=== PATIENT | male | born 1935 | race Caucasian/White ===

== ENCOUNTER 2017-07-30 10:41 | Inpatient (IN) ==
--- NOTE | 2017-07-30 11:20 | ERNOTE ---
Medical Problem HPI - Narrative Date of Service: 07/30/17 - General Chief Complaint: Fever Time Seen by Provider: 07/30/17 11:02 Source: patient Exam Limitations: no limitations - Immun/Allergies/Home Medications Immunizations: IMMUNIZATION HX Immunizations Up to Date Yes History of Influenza Vaccine Yes Hx Pneumococcal Vaccination Yes Allergies/Adverse Reactions: Allergies No Known Drug Allergies Allergy (Verified 07/30/17 11:28) Home Medications: HOME MEDICATIONS Atorvastatin Calcium [Lipitor] 60 mg PO HS 05/17/12 [Last Taken 04/22/13] Benazepril HCl [Lotensin] 20 mg PO BID 05/17/12 [Last Taken 04/23/13] Escitalopram Oxalate [Lexapro] 10 mg PO HS 05/17/12 [Last Taken 04/22/13] Furosemide [Lasix] 140 mg PO DAILY 05/17/12 [Last Taken 04/23/13] Insulin Glargine,Hum.rec.anlog [Lantus] 85 unit SQ QAM 05/17/12 [Last Taken ] Omeprazole [Prilosec] 20 mg PO BID 05/17/12 [Last Taken 04/23/13] Potassium Chloride [Klor-Con 10] 10 meq PO DAILY 05/17/12 [Last Taken 04/22/13] Gabapentin 600 mg PO TID 04/23/13 [Last Taken 04/22/13] glipiZIDE [Glucotrol] 5 mg PO BID 04/24/13 [Last Taken Unknown] rOPINIRole HCL [Ropinirole HCl] 3 mg PO HS 04/24/13 [Last Taken Unknown] Metoprolol Tartrate [Lopressor] 75 mg PO BID 06/08/13 [Last Taken Unknown] Acetaminophen [Arthritis Pain Relief] 1,300 mg PO Q8H PRN 08/24/13 [Last Taken Unknown] Insulin Pump/Infus. Set/Meter [Accu-Chek Combo System] 1 each MC DAILY 08/24/13 [Last Taken Unknown] Multivitamins [Multivitamin Keith] 1 cap PO DAILY 08/24/13 [Last Taken Unknown] Apixaban [Eliquis] 5 mg PO BID 07/30/17 [Last Taken Unknown] Pioglitazone HCl [Actos] 45 mg PO DAILY 07/30/17 [Last Taken Unknown] - History of Present History Narrative: Pt. comes in from home with by ambulance with c/o increased weakness, SOB, and chills with fever, for 24 hours. Pt. states that he has a hx of prostate cnacer and CHF, with fluid retention and has been urinating more frequently but denies any recent change in urination like dysuria, or pyuria. Timing: getting worse Severity: mild Modifying Factors - (Improves): Present: other - denies Modifying Factors - (Worsens): Present: other - activity and laying flat Review of Systems - Review of Systems Constitutional: Present: fever, chills, weakness, fatigue, malaise EYE: Present: no symptoms reported ENT: Present: no symptoms reported. Absent: nose congestion, nasal drainage, sore throat Respiratory: Present: shortness of breath, orthopnea. Absent: cough, wheezing Cardiology: Present: edema. Absent: chest pain, palpitations Gastrointestinal/Abdominal: Present: nausea, vomiting. Absent: diarrhea, abdominal pain Genitourinary: Present: no symptoms reported. Absent: frequency, decreased urinary output Musculoskeletal: Present: no symptoms reported. Absent: back pain, neck pain, joint pain Skin: Present: no symptoms reported. Absent: rash, change in color Neurological: Present: weakness - generalized. Absent: headache, dizziness/ light-headedness, numbness, tingling Endocrine: Present: no symptoms reported Hematologic/Lymphatic: Present: no symptoms reported All Other Systems: All systems neg except as marked - Patient's Past Medical History Patient History - Medical: Diabetes Type 2, Obesity Patient History - Cardiac/Respiratory: Cardiac Arrest, CHF, CPAP/BiPAP Home Use , Sleep Apnea Patient History - Cancer: Prostate Patient History - Surgical Procedures: Cardiac stent, Total Knee Replacement Patient History - Other: None - Social History Living Situations: home Abuse History: No History of abuse Psych History: No pertinent hx Smoking Status: Former smoker Have you smoked in the past 12 months: No Do you dip or chew tobacco: No Alcohol Use: occasionally Drug Use: none - Immunizations Immunizations Up to Date: Yes Hx Pneumococcal Vaccination: Yes History of Influenza Vaccine: Yes Physical Exam - Physical Exam General Appearance: Present: wd/wn, alert, no apparent distress Head Exam: Present: normal inspection, no evidence of injury, no tenderness w palpation Eye Exam: Normal inspection: bilateral Ears, Nose, Throat: Present: normal ENT inspection, normal pharynx Neck: Present: normal inspection, nontender, supple, full range of motion. Absent: lymphadenopathy (R), lymphadenopathy (L) Respiratory: Present: no respiratory distress, no accessory muscle use, chest nontender, decreased breath sounds - B bases, crackles - course BUL Cardiovascular/Chest: Present: regular rate, rhythm, no murmur, normal peripheral pulses Gastrointestinal/Abdominal: Present: normal bowel sounds, no organomegaly, tenderness - BUQ, distended. Absent: rebound, McBurney sign, Burrell sign Back Exam: Present: normal inspection Extremity Exam: Present: extremity edema - BLE +4 gross edema and BUE +2. pt. also with sacral edema., other - ketosis BLE and hemosiderin staining, no cellulytic changes or erythema Neurological Exam: Present: alert, oriented, normal mood/affect, no motor/ sensory deficits Skin Exam: Present: normal color, warm/dry, other - see above. Pt. with multiple avulsions on his stomach from picking sores. All at different stages of healing one on his LLQ 1cm in diameter with purulent dry slough present.. Absent: pallor, skin rash ED Progress - Date and Time Seen: Date and Time: 1300 Unable to find source of infection, discussed with pt. and he states that he wants me to check buttocks because they have been burning and pt. found to have 2cm open necrotic wet wound with purulent drainage and odor with surrounding cellulitis. 07/30/17 13:[address] Mcintyre and she accepts pt. for transfer and recommends Zosyn 07/30/17 13:47 Pt. ideal body weight 172 kg so will order rest of sepsis bolus at 126/hr for [place] body weight - Results and Orders Patient's Lab Results:: I have reviewed the patient's lab results. Results and Orders: Laboratory Results - last 24 hr 07/30/17 07/30/17 07/30/17 11:10 11:10 11:10 WBC 22.8 H RBC 3.39 L Hgb 10.6 L Hct 32.2 L MCV 95.0 MCH 31.3 H MCHC 32.9 RDW 13.7 Plt Count 158 MPV 9.7 H Neutrophils % (Manual) 86 H Band Neuts % (Manual) 8 H Lymphocytes % (Manual) 4 L Monocytes % (Manual) 2 Neutrophils # (Manual) 19.6 H Lymphocytes # (Manual) 0.9 L Monocytes # (Manual) 0.5 Platelet Estimate Normal RBC Morphology Normal ESR 45 H Sodium 137 Plasma Sodium 139 Potassium 4.5 Chloride 104 Carbon Dioxide 28.2 Anion Gap 9.3 BUN 23 D Creatinine 1.70 H Est GFR (Non-Af Amer) 41 L BUN/Creatinine Ratio 13.5 Random Glucose 202 H Lactic Acid, Venous Calcium 8.6 Calcium Adj for Albumin 9.2 Total Bilirubin 1.0 AST 33 ALT 29 Alkaline Phosphatase 117 C-Reactive Prot, Quant 2.2 H B-Natriuretic Peptide 2552 H Total Protein 6.2 Albumin 2.8 L Urine Color Urine Appearance Urine pH Ur Specific [place] Urine Protein Urine Glucose (UA) Urine Ketones Urine Blood Urine Nitrate Urine Bilirubin Urine Urobilinogen Ur Leukocyte Esterase Urine RBC Urine WBC Ur Epithelial Cells Amorphous Sediment Urine Bacteria Urine Culture Comments 07/30/17 07/30/17 11:10 11:48 WBC RBC Hgb Hct MCV MCH MCHC RDW Plt Count MPV Neutrophils % (Manual) Band Neuts % (Manual) Lymphocytes % (Manual) Monocytes % (Manual) Neutrophils # (Manual) Lymphocytes # (Manual) Monocytes # (Manual) Platelet Estimate RBC Morphology ESR Sodium Plasma Sodium Potassium Chloride Carbon Dioxide Anion Gap BUN Creatinine Est GFR (Non-Af Amer) BUN/Creatinine Ratio Random Glucose Lactic Acid, Venous 2.8 H* Calcium Calcium Adj for Albumin Total Bilirubin AST ALT Alkaline Phosphatase C-Reactive Prot, Quant B-Natriuretic Peptide Total Protein Albumin Urine Color Yellow Urine Appearance Slightly cloudy Urine pH 5.5 Ur Specific [place] 1.020 Urine Protein Negative Urine Glucose (UA) Negative Urine Ketones Negative Urine Blood 25 H Urine Nitrate Negative Urine Bilirubin Negative Urine Urobilinogen Normal Ur Leukocyte Esterase Negative Urine RBC None seen Urine WBC 0-5 Ur Epithelial Cells 0-5 Amorphous Sediment Few - 1+ Urine Bacteria None seen Urine Culture Comments Culture to follow - Vital Signs Patient's Vital Signs:: I have reviewed the patient's vital signs. Vital Signs: Vital Signs 07/30/17 10:46 Temperature 37.4 C Pulse Rate 94 Respiratory 29 H Rate Blood Pressure 170/116 O2 Sat by Pulse 96 Oximetry - EKG EKG: atrial fibrillation, RBBB - incomplete, other - RVR EKG read: Reviewed by me EKG Comments: interp by Dr reno - X-Ray X-Ray #1 X-Ray: chest Interpretation: Reviewed by me X-ray Comments: no pulmonary congestion or consolidation but with cardiomegaly - Progress/Reassessment Chief Complaint: Fever Departure Clinical Impression: Sepsis Qualifiers: Sepsis type: sepsis due to unspecified organism Qualified Code(s): A41.9 - Sepsis, unspecified organism Pressure ulcer Qualifiers: Pressure ulcer location: sacral region Pressure ulcer stage: unstageable Qualified Code(s): L89.150 - Pressure ulcer of sacral region, unstageable CHF (congestive heart failure) Qualifiers: Heart failure type: unspecified Heart failure chronicity: acute on chronic Qualified Code(s): I50.9 - Heart failure, unspecified Cellulitis Qualifiers: Site of cellulitis: buttock Qualified Code(s): L03.317 - Cellulitis of buttock - Departure Disposition: Still a patient Condition: Serious Referrals: Caryn Maza MD [Primary Care Provider] -
[2017-07-30] MEDS ORDERED: NORMAL SALINE 250 ML IV ONE (11:22)
[2017-07-30 11:28] LABS: Hematocrit 32.2 % (42.0-52.0); Hemoglobin 10.6 gm/dL (13.5-18.0); Mean Corpuscular Hemoglobin 31.3 pg (27-31); Mean Corpuscular Hgb Conc 32.9 g/dl (32-36); Mean Platelet Volume 9.7 fl (6.0-9.5); Platelet Count 158 K/mm3 (150-450); Red Blood Count 3.39 M/mm3 (4.7-6.0); Red Cell Distribution Width 13.7 % (11.5-14.0); White Blood Count 22.8 K/mm3 (4.0-10.5)
[2017-07-30 11:31] LABS: Total Cells Counted 100
[2017-07-30 11:47] LABS: Albumin * 2.8 gm/dl (3.4-5.0); Anion Gap 9.3 mmol/L (6.8-13.8); BUN/Creatinine Ratio 13.5 (9.0-21.6); CRP 2.2 mg/dL (0.0-0.9); Ca. Corrected For Albumin 9.2 mg/dL (8.4-10.2); Calcium * 8.6 mg/dL (7.9-10.9); Carbon Dioxide 28.2 mmol/L (24-32.6); Potassium 4.5 mmol/L (3.4-4.6); Total Protein 6.2 gm/dL (6.2-8.2)
[2017-07-30 12:00] LABS: Band 8 % (0-2.0); Lymphocyte 4 % (20-51); Monocyte 2 % (0-9); Neutrophil 86 % (42-75); Neutrophil # 19.6 K/mm3 (1.3-6.0); Platelet Estimate Normal (NORMAL); RBC Morphology Normal (NORMAL)
[2017-07-30 12:13] LABS: Urine Appearance Slightly Cloudy (CLEAR); Urine Bilirubin Negative (NEGATIVE); Urine Color Yellow
[2017-07-30 12:14] LABS: Urine Blood 25 /ul (NEGATIVE); Urine Ketone Negative (NEGATIVE); Urine Nitrite Negative (NEGATIVE); Urine Protein Negative (NEGATIVE); Urine Urobilinogen Normal (NORMAL); Urine pH 5.5 pH (5.0-7.0)
[2017-07-30 12:33] LABS: Urine Bacteria None Seen; Urine RBC None Seen /hpf (0-5); Urine WBC 0-5 /hpf (0-5)
[2017-07-30 12:34] LABS: Urine Amorphous Sediment Few - 1+ (NONE-FEW)
[2017-07-30] MEDS: NORMAL SALINE 1,000 ML IV SCH ×2 (13:57→23:12)
[2017-07-30] MEDS: PIPERACILLIN SODIUM/TAZOBACTAM 3.375 GM in DEXTROSE 5 % IN WATER 100 ML IV SCH ×4 (15:29→22:28)
--- NOTE | 2017-07-30 19:34 | HP ---
Chief Complaint - Chief Complaint Date of Service: 07/30/17 Time of Service: 19:34 Chief Complaint: " Chills, weakness". Source of HPI- Pt; reliable, ERP report. History of Present Illness: Mr. Way is a 82-yr-old WM pt of Dr. Caryn Simpson with a PMH of: Anxiety , A-fib, CAD, Cholelithiasis, Depression, DM II, GERD, HTN, HLD, Morbid Obesity , Osteothathritis, DE, Prostate Ca, Restless Leg Syndrome and TED. Pt states that last night, he developed chills when he went to bed. This morning he woke up feeling like he was "burning." His tried to assist him to sit upright on the bed and he kept falling back. then called the EMS and he was brought to the [facility] ER. He states that he has been coughing a lot lately and that his throat feels sore from the cough. He has not been around ill contacts. He denies N/V, Diarrhea & Abdominal pain. He reports extreme SOB with any activity. At the ED, No infection on UA. The CXR did not show evidence of Pneumonia or pleural effusion, but Cardiomegaly was noted. Abdominal X-ray did not show any signs of Obstruction. He had tachycardia in the 110s ,tachypneic at 24-26 and hypotensive with BP of 80s/40s. His notable abnormal labs were: Laboratory Tests 07/30/17 07/30/17 07/30/17 11:10 11:10 11:10 WBC 22.8 H Neutrophils % (Manual) 86 H Band Neuts % (Manual) 8 H ESR 45 H Lactic acid 2.8 C-Reactive Prot, Quant 2.2 H B-Natriuretic Peptide 2552 H Pt will need to be admitted inpatient for Sepsis secondary to unknown source of infection. - Patient's Past Medical History Patient History - Medical: Arthritis, Diabetes Type 2, Depression, GERD, Obesity , Osteoarthritis Patient History - Cardiac/Respiratory: Asthma, Cardiac Arrest, Coronary Heart Disease, CHF, Hypertension, Hyperlipidemia, Myocardial Infarction, CPAP/BiPAP Home Use, Sleep Apnea Patient History - Cancer: Prostate Patient History - Surgical Procedures: Colonoscopy, Cardiac stent, Total Knee Replacement Patient History - Other: None - Family History Father Family History - Medical: Family History - Cancer: Prostate Mother Family History - Medical: - Social History Living Situations: home Abuse History: No History of abuse Psych History: Hx of Anxiety, Hx of Depression Smoking Status: Former smoker Have you smoked in the past 12 months: No Do you dip or chew tobacco: No Alcohol Use: occasionally Drug Use: none - Immunizations Immunizations Up to Date: Yes Hx Pneumococcal Vaccination: Yes History of Influenza Vaccine: Yes Review Of Systems (GEN) - Review of Systems Generalized/Overall Review: Present: Weakness, Chills, Fever, Malaise EENTM: Absent: Eye Pain, Blurred Vision, Double Vision Respiratory: Present: Cough, Shortness of Breath - with exertion Cardiac: Present: Edema. Absent: Chest Pain, Palpitations, Syncope Abdominal: Absent: Nausea, Vomiting, Hematemesis, Abdominal Pain, Constipation Genitourinary: Absent: Burning, Itching, Urgency Musculoskeletal: Absent: Joint Pain, Back Pain, Joint Swelling Neurological: Absent: Headache, Anxiety, Depressed, Emotional Problems Skin: Absent: Dryness, Lesions Endocrine: Absent: Intolerance to Cold Misc: All systems neg except as marked Allergies/Adverse Reactions: Allergies Allergy/AdvReac Type Severity Reaction Status Date / Time No Known Drug Allergies Allergy Verified 07/30/17 16:32 Home Medications: HOME MEDICATIONS Atorvastatin Calcium [Lipitor] 60 mg PO HS 05/17/12 [Last Taken 04/22/13] Benazepril HCl [Lotensin] 20 mg PO BID 05/17/12 [Last Taken 04/23/13] Escitalopram Oxalate [Lexapro] 10 mg PO HS 05/17/12 [Last Taken 04/22/13] Furosemide [Lasix] 140 mg PO DAILY 05/17/12 [Last Taken 04/23/13] Insulin Glargine,Hum.rec.anlog [Lantus] 85 unit SQ QAM 05/17/12 [Last Taken ] Omeprazole [Prilosec] 20 mg PO BID 05/17/12 [Last Taken 04/23/13] Potassium Chloride [Klor-Con 10] 20 meq PO DAILY 05/17/12 [Last Taken 04/22/13] Gabapentin 600 mg PO TID 04/23/13 [Last Taken 04/22/13] glipiZIDE [Glucotrol] 5 mg PO BID 04/24/13 [Last Taken Unknown] rOPINIRole HCL [Ropinirole HCl] 3 mg PO HS 04/24/13 [Last Taken Unknown] Metoprolol Tartrate [Lopressor] 75 mg PO BID 06/08/13 [Last Taken Unknown] Acetaminophen [Arthritis Pain Relief] 1,300 mg PO Q8H PRN 08/24/13 [Last Taken Unknown] Insulin Pump/Infus. Set/Meter [Accu-Chek Combo System] 1 each MC DAILY 08/24/13 [Last Taken Unknown] Multivitamins [Multivitamin Keith] 1 cap PO DAILY 08/24/13 [Last Taken Unknown] Apixaban [Eliquis] 5 mg PO BID 07/30/17 [Last Taken Unknown] Pioglitazone HCl [Actos] 45 mg PO DAILY 07/30/17 [Last Taken Unknown] Exam - Exam Vital Signs: Vital Signs - Last Taken Temp 36.8 C 07/30/17 19:12 Pulse 95 07/30/17 19:12 Resp 20 07/30/17 19:12 BP 108/41 07/30/17 19:12 Pulse Ox 96 07/30/17 19:12 Constitutional: Present: Alert, Oriented x3, Cooperative, No distress, Morbidly obese ENT Exam: Present: normal ENT inspection, dry mucous membranes Eye Exam: bilateral eye: normal inspection, PERRL Neck: Present: non-tender, full range of motion Back Exam: Present: normal inspection, no CVA tenderness Breasts: Present: Exam deferred Respiratory: Present: decreased breath sounds, No rales, No wheezing Cardiovascular/Chest: Present: normal peripheral pulses, regular rate, rhythm, no chest tenderness Abdomen: Present: Normal bowel sounds, soft, nontender /Rectal: Present: Exam deferred Extremity: Present: lower extremity edema, other Skin Exam: Present: other - Dry, Flaky BLE, LT buttock skin fold-Skin opening/ slit of 2cm, no drainage, no undermining. Lymphatic: Present: no adenopathy Neurologic: Present: alert, normal mood/affect, oriented x 3 Appearance: Present: appropriate appearance, appropriate insight Eye contact: Present: cooperative, good eye contact, normal speech Thoughts: Present: normal thought pattern, no apparent hallucination Diagnostic Studies: Abnormal Lab Results 07/30/17 Range/Units 14:05 Lactic Acid, Venous 2.6 H* (0.4-1.9) mmol/L Laboratory Results WBC 22.8 K/mm3 (4.0-10.5) H 07/30/17 11:10 RBC 3.39 M/mm3 (4.7-6.0) L 07/30/17 11:10 Hgb 10.6 gm/dL (13.5-18.0) L 07/30/17 11:10 Hct 32.2 % (42.0-52.0) L 07/30/17 11:10 MCV 95.0 fl (78-100) 07/30/17 11:10 MCH 31.3 pg (27-31) H 07/30/17 11:10 MCHC 32.9 g/dl (32-36) 07/30/17 11:10 RDW 13.7 % (11.5-14.0) 07/30/17 11:10 Plt Count 158 K/mm3 (150-450) 07/30/17 11:10 MPV 9.7 fl (6.0-9.5) H 07/30/17 11:10 Neutrophils % (Manual) 86 % (42-75) H 07/30/17 11:10 Band Neuts % (Manual) 8 % (0-2.0) H 07/30/17 11:10 Lymphocytes % (Manual) 4 % (20-51) L 07/30/17 11:10 Monocytes % (Manual) 2 % (0-9) 07/30/17 11:10 Neutrophils # (Manual) 19.6 K/mm3 (1.3-6.0) H 07/30/17 11:10 Lymphocytes # (Manual) 0.9 k/mm3 (1.5-3.5) L 07/30/17 11:10 Monocytes # (Manual) 0.5 k/mm3 (0.0-1.0) 07/30/17 11:10 Platelet Estimate Normal (NORMAL) 07/30/17 11:10 RBC Morphology Normal (NORMAL) 07/30/17 11:10 ESR 45 mm/hr (0-10) H 07/30/17 11:10 Sodium 137 mmol/L (132-142) 07/30/17 11:10 Plasma Sodium 139 mmol/L (130-142) 07/30/17 11:10 Potassium 4.5 mmol/L (3.4-4.6) 07/30/17 11:10 Chloride 104 mmol/L (97-106) 07/30/17 11:10 Carbon Dioxide 28.2 mmol/L (24-32.6) 07/30/17 11:10 Anion Gap 9.3 mmol/L (6.8-13.8) 07/30/17 11:10 BUN 23 mg/dL (6-23) D 07/30/17 11:10 Creatinine 1.70 mg/dL (0.4-1.4) H 07/30/17 11:10 Est GFR (Non-Af Amer) 41 mL/min (60-130) L 07/30/17 11:10 BUN/Creatinine Ratio 13.5 (9.0-21.6) 07/30/17 11:10 Random Glucose 202 mg/dL (70-110) H 07/30/17 11:10 Lactic Acid, Venous 2.6 mmol/L (0.4-1.9) H* 07/30/17 14:05 Calcium 8.6 mg/dL (7.9-10.9) 07/30/17 11:10 Calcium Adj for Albumin 9.2 mg/dL (8.4-10.2) 07/30/17 11:10 Total Bilirubin 1.0 mg/dL (0.0-1.1) 07/30/17 11:10 AST 33 U/L (0-48) 07/30/17 11:10 ALT 29 U/L (19-67) 07/30/17 11:10 Alkaline Phosphatase 117 U/L (50-170) 07/30/17 11:10 C-Reactive Prot, Quant 2.2 mg/dL (0.0-0.9) H 07/30/17 11:10 B-Natriuretic Peptide 2552 pg/mL (5-650) H 07/30/17 11:10 Total Protein 6.2 gm/dL (6.2-8.2) 07/30/17 11:10 Albumin 2.8 gm/dl (3.4-5.0) L 07/30/17 11:10 Urine Color Yellow 07/30/17 11:48 Urine Appearance Slightly cloudy (CLEAR) 07/30/17 11:48 Urine pH 5.5 pH (5.0-7.0) 07/30/17 11:48 Ur Specific [place] 1.020 SP.GR. (1.005-1.030) 07/30/17 11:48 Urine Protein Negative mg/dL (NEGATIVE) 07/30/17 11:48 Urine Glucose (UA) Negative mg/dL (NEGATIVE) 07/30/17 11:48 Urine Ketones Negative mg/dL (NEGATIVE) 07/30/17 11:48 Urine Blood 25 /ul (NEGATIVE) H 07/30/17 11:48 Urine Nitrate Negative (NEGATIVE) 07/30/17 11:48 Urine Bilirubin Negative mg/dl (NEGATIVE) 07/30/17 11:48 Urine Urobilinogen Normal EU/dl (NORMAL) 07/30/17 11:48 Ur Leukocyte Esterase Negative /ul (NEGATIVE) 07/30/17 11:48 Urine RBC None seen /hpf (0-5) 07/30/17 11:48 Urine WBC 0-5 /hpf (0-5) 07/30/17 11:48 Ur Epithelial Cells 0-5 /hpf (0-5) 07/30/17 11:48 Amorphous Sediment Few - 1+ (NONE-FEW) 07/30/17 11:48 Urine Bacteria None seen (NONE) 07/30/17 11:48 Urine Culture Comments Culture to follow 07/30/17 11:48 Influenza Type A Ag Negative (NEGATIVE) 07/30/17 13:50 Influenza Type B Ag Negative (NEGATIVE) 07/30/17 13:50 Assessment/Plan - Assessment/Plan (1) Sepsis Assessment: Source of infection; unknown. UA -ve, No acute findings on the CXR and Abdominal X-ray. Will be treated according to sepsis with IVF hydration, trend lactic acid, initiate Antibiotics. Started on Zosyn and will continue until blood culture results. Monitor CBC in am. Problem: Acute (2) A-fib Assessment: Stable- On Eliquis, Metoprolol. Place on telemetry monitoring. Problem: Chronic (3) Diabetes Assessment: Consistent Carb diet, On Actos, Glipizide & Lantus. Problem: Chronic Qualifiers: Diabetes mellitus type: type 2 (4) Lymphedema Problem: Chronic (5) HTN (hypertension) Assessment: Stable- On enalapril. Problem: Chronic Qualifiers: Hypertension type: essential hypertension Qualified Code(s): I10 - Essential (primary) hypertension (6) CHF (congestive heart failure) Assessment: Continue Lasix and KCL. Problem: Chronic Qualifiers: Heart failure type: diastolic Heart failure chronicity: acute on chronic Qualified Code(s): I50.33 - Acute on chronic diastolic (congestive) heart failure (7) Morbid obesity Assessment: With BMI of 60.2kg/m Problem: Chronic (8) HLD (hyperlipidemia) Problem: Chronic (9) Obstructive sleep apnea Assessment: Stable- Continue Home CPAP. Problem: Chronic (10) CKD (chronic kidney disease) Assessment: Laboratory Tests 09/09/16 01/03/17 03/14/17 09:50 13:44 12:57 Creatinine 1.62 H 1.48 H 1.68 H Est GFR (Non-Af Amer) 44 L D 49 L 42 L 07/30/17 11:10 Creatinine 1.70 H Est GFR (Non-Af Amer) 41 L Problem: Chronic Qualifiers: Chronic kidney disease stage: stage 3 (moderate) Qualified Code(s): N18.3 - Chronic kidney disease, stage 3 (moderate)
[2017-07-30] MEDS ORDERED: METOPROLOL TARTRATE 50 MG TABLET PO SCH (21:00)
[2017-07-30] MEDS ORDERED: ENALAPRIL MALEATE 20 MG TABLET PO SCH (21:00)
[2017-07-30] MEDS: glipiZIDE 5 MG TABLET PO SCH (21:16)
[2017-07-30] MEDS: GABAPENTIN 300 MG CAPSULE PO SCH (21:16)
[2017-07-30] MEDS: rOPINIRole HCL 1 MG TABLET PO SCH (21:17)
[2017-07-30] MEDS: ESCITALOPRAM OXALATE 10 MG TAB PO SCH (21:18)
[2017-07-30] MEDS: APIXABAN 5 MG TABLET PO SCH (21:18)
[2017-07-30] MEDS: SACCHAROMYCES BOULARDII 250 MG CAPSULE PO SCH (21:18)
[2017-07-30] MEDS: ROSUVASTATIN CALCIUM 10 MG TABLET PO SCH (21:22)
[2017-07-31] MEDS: NORMAL SALINE 500 ML IV PRN ×2 (02:17→03:20)
[2017-07-31] MEDS ORDERED: NORMAL SALINE 500 ML IV PRN (03:21)
--- NOTE | 2017-07-31 04:57 | PN ---
Subjective - Date and Time Seen Date: 07/31/17 Time: 04:56 Subjective Narrative: Pt examined this am. Has been hypotensive since about 0200 with SBP < 100.- Will hold lasix, metoprolol, and Enalapril. Received 1.5 L of IVF bolus for this. Has had urine output of 300ml only. Denies SOB unless with activity. No other acute events overnight. Objective - Vitals Vitals: Last Vital Signs Temp 37 C 07/31/17 02:12 Pulse 99 07/31/17 04:20 Resp 20 07/31/17 02:42 BP 91/50 07/31/17 04:20 Pulse Ox 95 07/31/17 02:42 - Abnormal Lab Findings Abnormal Lab Findings: Abnormal Lab Results 07/30/17 Range/Units 14:05 Lactic Acid, Venous 2.6 H* (0.4-1.9) mmol/L - Exam Constitutional: Present: Alert, Oriented x3, Cooperative, No distress, Morbidly obese ENT Exam: Present: normal ENT inspection Neck: Present: non-tender, full range of motion, supple Respiratory: Present: lungs clear, No rales, No wheezing Cardiovascular/Chest: Present: normal peripheral pulses, regular rate, rhythm Abdomen: Present: Normal bowel sounds, obese /Rectal: Present: Exam deferred Extremity: Present: lower extremity edema Skin Exam: Present: other - Flaky BLE Lymphatic: Present: no adenopathy Neurologic: Present: alert, normal mood/affect, oriented x 3 Appearance: Present: appropriate appearance, appropriate insight Eye contact: Present: cooperative, good eye contact, normal speech Thoughts: Present: normal thought pattern, no apparent hallucination Assessment/Plan - Problems/Diagnosis (1) Sepsis Problem: Acute Narrative: Source of infection; unknown. UA -ve, No acute findings on the CXR and Abdominal X-ray. Will be treated according to sepsis with IVF hydration, trend lactic acid, initiate Antibiotics. Started on Zosyn and will continue until blood culture results. Monitor CBC in am. (2) Hypotension Problem: Acute Narrative: Hold antihypensive. Given IVF bolus. (3) A-fib Problem: Chronic Narrative: Stable- On Eliquis, Metoprolol. Place on telemetry monitoring. (4) Diabetes Problem: Chronic Qualifiers: Diabetes mellitus type: type 2 Narrative: Accu checks ACHS, Consistent Carb diet, On Actos, Glipizide & Lantus. (5) Lymphedema Problem: Chronic (6) HTN (hypertension) Problem: Chronic Qualifiers: Hypertension type: essential hypertension Qualified Code(s): I10 - Essential (primary) hypertension Narrative: Stable- On enalapril. (7) CHF (congestive heart failure) Problem: Chronic Qualifiers: Heart failure type: diastolic Heart failure chronicity: acute on chronic Qualified Code(s): I50.33 - Acute on chronic diastolic (congestive) heart failure Narrative: Continue Lasix and KCL. (8) Morbid obesity Problem: Chronic (9) HLD (hyperlipidemia) Problem: Chronic (10) Obstructive sleep apnea Problem: Chronic Narrative: Stable- Continue Home CPAP. (11) CKD (chronic kidney disease) Problem: Chronic Qualifiers: Chronic kidney disease stage: stage 3 (moderate) Qualified Code(s): N18.3 - Chronic kidney disease, stage 3 (moderate)
[2017-07-31 05:10] LABS: Hematocrit 29.5 % (42.0-52.0); Hemoglobin 9.8 gm/dL (13.5-18.0); Mean Cell Volume 95.2 fl (78-100); Mean Corpuscular Hemoglobin 31.6 pg (27-31); Mean Corpuscular Hgb Conc 33.2 g/dl (32-36); Mean Platelet Volume 9.3 fl (6.0-9.5); Neutrophil % 88.5 % (42-75.0); Platelet Count 130 K/mm3 (150-450); Red Cell Distribution Width 14.1 % (11.5-14.0); White Blood Count 12.4 K/mm3 (4.0-10.5)
[2017-07-31] MEDS ORDERED: NORMAL SALINE 500 ML IV ONE (05:20)
[2017-07-31 05:23] LABS: Anion Gap 9.6 mmol/L (6.8-13.8); Calcium * 8.1 mg/dL (7.9-10.9); Carbon Dioxide 26.3 mmol/L (24-32.6); Estimated Creat Clear 33.5; Potassium 3.9 mmol/L (3.4-4.6)
[2017-07-31] MEDS: PIPERACILLIN SODIUM/TAZOBACTAM 3.375 GM in DEXTROSE 5 % IN WATER 100 ML IV SCH ×6 (06:48→22:24)
[2017-07-31] MEDS: PANTOPRAZOLE SODIUM 20 MG TABLET.DR PO SCH ×2 (06:49→17:15)
[2017-07-31] MEDS: NORMAL SALINE 1,000 ML IV PRN ×2 (06:53→17:09)
[2017-07-31] MEDS ORDERED: ACETAMINOPHEN 650 MG TABLET PO PRN (07:05)
[2017-07-31] MEDS: GABAPENTIN 300 MG CAPSULE PO SCH ×3 (08:24→17:15)
[2017-07-31] MEDS: glipiZIDE 5 MG TABLET PO SCH ×2 (08:24→17:14)
[2017-07-31] MEDS: MULTIVITAMINS 1 CAP CAPSULE PO SCH (08:24)
[2017-07-31] MEDS: POTASSIUM CHLORIDE 10 MEQ TABLET.SA PO SCH (08:24)
[2017-07-31] MEDS: SACCHAROMYCES BOULARDII 250 MG CAPSULE PO SCH ×2 (08:24→22:23)
[2017-07-31] MEDS: APIXABAN 5 MG TABLET PO SCH ×2 (08:24→22:23)
[2017-07-31] MEDS: PIOGLITAZONE HCL 15 MG TABLET PO SCH (08:24)
[2017-07-31] MEDS: INSULIN GLARGINE,HUM.REC.ANLOG 100 UNITS/ML VIAL SC SCH (08:48)
[2017-07-31] MEDS ORDERED: FUROSEMIDE 40 MG TABLET PO SCH (09:00)
[2017-07-31] MEDS ORDERED: FUROSEMIDE 20 MG TABLET PO SCH (09:00)
[2017-07-31] MEDS ORDERED: [UNRECOGNIZED DRUG - OTHER] MC SCH (09:00)
[2017-07-31] MEDS ORDERED: FUROSEMIDE 80 MG TABLET PO SCH ×2 (09:00)
[2017-07-31] MEDS ORDERED: NYSTATIN 15 APPL BTL TP PRN (11:54)
[2017-07-31] MEDS: HYDROcodone/ACETAMINOPHEN 1 EACH TABLET PO PRN ×3 (13:08→22:56)
[2017-07-31] MEDS: ROSUVASTATIN CALCIUM 10 MG TABLET PO SCH (22:23)
[2017-07-31] MEDS: ESCITALOPRAM OXALATE 10 MG TAB PO SCH (22:23)
[2017-07-31] MEDS: rOPINIRole HCL 1 MG TABLET PO SCH (22:24)
[2017-08-01] MEDS: NORMAL SALINE 1,000 ML IV PRN (02:59)
[2017-08-01 05:00] LABS: Hematocrit 31.8 % (42.0-52.0); Hemoglobin 10.3 gm/dL (13.5-18.0); Mean Cell Volume 96.1 fl (78-100); Mean Corpuscular Hemoglobin 31.1 pg (27-31); Mean Corpuscular Hgb Conc 32.4 g/dl (32-36); Mean Platelet Volume 9.7 fl (6.0-9.5); Neutrophil # 5.2 K/mm3 (1.3-6.0); Neutrophil % 72.5 % (42-75.0); Platelet Count 137 K/mm3 (150-450); Red Blood Count 3.31 M/mm3 (4.7-6.0); Red Cell Distribution Width 14.1 % (11.5-14.0); White Blood Count 7.2 K/mm3 (4.0-10.5)
[2017-08-01 05:10] LABS: Anion Gap 9.3 mmol/L (6.8-13.8); BUN/Creatinine Ratio 16.4 (9.0-21.6); Calcium * 8.5 mg/dL (7.9-10.9); Carbon Dioxide 26.9 mmol/L (24-32.6); Estimated Creat Clear 42.5; Potassium 4.2 mmol/L (3.4-4.6)
--- NOTE | 2017-08-01 05:30 | PN ---
Subjective - Date and Time Seen Date: 08/01/17 Time: 05:30 Subjective Narrative: Pt seen this am. Has not complains. Had urine output of 2000ml. BPs are better. No other acute events overnight. Objective - Vitals Vitals: Last Vital Signs Temp 36.3 C L 08/01/17 03:07 Pulse 104 H 08/01/17 03:07 Resp 22 H 08/01/17 03:07 BP 140/52 08/01/17 03:07 Pulse Ox 97 08/01/17 03:07 - Abnormal Lab Findings Abnormal Lab Findings: Abnormal Lab Results 07/31/17 08/01/17 08/01/17 Range/Units 05:05 04:55 04:55 RBC 3.31 L (4.7-6.0) M/mm3 Hgb 10.3 L (13.5-18.0) gm/dL Hct 31.8 L (42.0-52.0) % MCH 31.1 H (27-31) pg RDW 14.1 H (11.5-14.0) % Plt Count 137 L (150-450) K/mm3 MPV 9.7 H (6.0-9.5) fl Immature Gran % (Auto) 0.70 H (0.001-0.429) % Immature Gran # (Auto) 0.05 H (0.000-0.0310) K/mm3 Lymphocytes % 10.9 L (20-51) % Eosinophils % 7.6 H (0.0-3.0) % Lymphocytes # 0.79 L (1.5-3.5) k/mm3 BUN 25 H (6-23) mg/dL Creatinine 1.52 H D (0.4-1.4) mg/dL Est GFR (Non-Af Amer) 47 L D (60-130) mL/min B-Natriuretic Peptide 3911 H (5-650) pg/mL - Exam Constitutional: Present: Alert, Oriented x3, Cooperative, No distress ENT Exam: Present: normal ENT inspection, hearing grossly normal Neck: Present: non-tender, full range of motion, supple Respiratory: Present: chest non-tender, decreased breath sounds, No rales, No wheezing Cardiovascular/Chest: Present: normal peripheral pulses, regular rate, rhythm, no chest tenderness Abdomen: Present: Normal bowel sounds, soft, nontender, obese /Rectal: Present: Exam deferred Extremity: Present: lower extremity edema Skin Exam: Present: other - Flaky BLE Lymphatic: Present: no adenopathy Neurologic: Present: alert, normal mood/affect Appearance: Present: appropriate appearance, appropriate insight Eye contact: Present: cooperative, good eye contact, normal speech Thoughts: Present: normal thought pattern, no apparent hallucination Assessment/Plan - Problems/Diagnosis (1) Sepsis Problem: Acute Narrative: Source of infection; unknown. UA -ve, No acute findings on the CXR and Abdominal X-ray. Will be treated according to sepsis with IVF hydration, trend lactic acid, initiate Antibiotics. Started on Zosyn and will continue until blood culture results. Monitor CBC in am. (2) Hypotension Problem: Acute Narrative: 07/31-Hold antihypensives. Given IVF bolus. 08/01- Restart HTN Meds and Lasix (3) Discharge planning issues Problem: Acute (4) A-fib Problem: Chronic Narrative: Stable- On Eliquis, Metoprolol. Place on telemetry monitoring. (5) Diabetes Problem: Chronic Qualifiers: Diabetes mellitus type: type 2 Narrative: Accu checks ACHS, Consistent Carb diet, On Actos, Glipizide & Lantus. (6) Lymphedema Problem: Chronic (7) HTN (hypertension) Problem: Chronic Qualifiers: Hypertension type: essential hypertension Qualified Code(s): I10 - Essential (primary) hypertension (8) CHF (congestive heart failure) Problem: Chronic Qualifiers: Heart failure type: diastolic Heart failure chronicity: acute on chronic Qualified Code(s): I50.33 - Acute on chronic diastolic (congestive) heart failure Narrative: Stable- Lasix and KCL. (9) Morbid obesity Problem: Chronic (10) HLD (hyperlipidemia) Problem: Chronic (11) Obstructive sleep apnea Problem: Chronic Narrative: Stable- Continue Home CPAP. (12) CKD (chronic kidney disease) Problem: Chronic Qualifiers: Chronic kidney disease stage: stage 3 (moderate) Qualified Code(s): N18.3 - Chronic kidney disease, stage 3 (moderate)
[2017-08-01] MEDS: PIPERACILLIN SODIUM/TAZOBACTAM 3.375 GM in DEXTROSE 5 % IN WATER 100 ML IV SCH ×2 (06:29)
[2017-08-01] MEDS ORDERED: METOPROLOL TARTRATE 50 MG TABLET PO SCH (07:00)
[2017-08-01] MEDS: ENALAPRIL MALEATE 20 MG TABLET PO SCH ×3 (07:26→20:05)
[2017-08-01] MEDS: glipiZIDE 5 MG TABLET PO SCH ×2 (07:27→18:13)
[2017-08-01] MEDS: PANTOPRAZOLE SODIUM 20 MG TABLET.DR PO SCH ×2 (07:31→17:49)
[2017-08-01] MEDS: INSULIN GLARGINE,HUM.REC.ANLOG 100 UNITS/ML VIAL SC SCH (08:53)
[2017-08-01] MEDS: GABAPENTIN 300 MG CAPSULE PO SCH ×3 (09:47→17:49)
[2017-08-01] MEDS: HYDROcodone/ACETAMINOPHEN 1 EACH TABLET PO PRN ×2 (09:49→19:19)
[2017-08-01] MEDS: SACCHAROMYCES BOULARDII 250 MG CAPSULE PO SCH ×2 (09:50→20:02)
[2017-08-01] MEDS: PIOGLITAZONE HCL 15 MG TABLET PO SCH (09:50)
[2017-08-01] MEDS: LEVOFLOXACIN 500 MG TABLET PO SCH (09:50)
[2017-08-01] MEDS: MULTIVITAMINS 1 CAP CAPSULE PO SCH (09:51)
[2017-08-01] MEDS: APIXABAN 5 MG TABLET PO SCH ×2 (09:51→20:01)
[2017-08-01] MEDS: FUROSEMIDE 80 MG TABLET PO SCH (09:51)
[2017-08-01] MEDS: POTASSIUM CHLORIDE 10 MEQ TABLET.SA PO SCH (09:51)
[2017-08-01] MEDS: METOPROLOL TARTRATE 50 MG, METOPROLOL TARTRATE 25 MG PO SCH ×4 (09:54→20:03)
[2017-08-01] MEDS ORDERED: ONDANSETRON HCL 4 MG TABLET PO PRN (10:35)
[2017-08-01] MEDS: HYDROPHILIC OINTMENT 454 APPL JAR TP SCH ×2 (12:33→20:00)
--- NOTE | 2017-08-01 14:32 | CONS ---
[facility] - General Date of Service: 08/01/17 Narrative: Patient is an 82 year old male, recently admitted to the hospital for treatment of sepsis with unknown source of infection. He states that he was brought by ambulance due to being unable to sit up or respond. He has a history of atrial fibrillation, diabetes, lymphadema, hypertension, congestive heart failure, morbid obesity, hyperlipidemia, obstructive sleep apnea and chronic kidney disease. This consult is regarding a possible pressure ulcer to his buttocks. He states that his symptoms have been present since mid winter. He treats the open areas with bag balm. The patient states that he is sedentary most of the day. He does walk to the bathroom with the assistance of a walker at home. He has a wheelchair for use outside of the home, as it does not fit in his home. Source: patient - History of Present Illness Timing/Duration: unsure Allergies/Adverse Reactions: Allergies No Known Drug Allergies Allergy (Verified 07/30/17 16:32) Home Medications: Home Medications Medication Instructions Recorded Last Taken Atorvastatin Calcium [Lipitor] 60 mg PO HS 05/17/12 04/22/13 Benazepril HCl [Lotensin] 20 mg PO BID 05/17/12 04/23/13 Escitalopram Oxalate [Lexapro] 10 mg PO HS 05/17/12 04/22/13 Furosemide [Lasix] 140 mg PO DAILY 05/17/12 04/23/13 Insulin Glargine,Hum.rec.anlog 85 unit SQ QAM 05/17/12 04/23/13 [Lantus] Omeprazole [Prilosec] 20 mg PO BID 05/17/12 04/23/13 Potassium Chloride [Klor-Con 10] 20 meq PO DAILY 05/17/12 04/22/13 Gabapentin 600 mg PO TID 04/23/13 04/22/13 glipiZIDE [Glucotrol] 5 mg PO BID 04/24/13 Unknown rOPINIRole HCL [Ropinirole HCl] 3 mg PO HS 04/24/13 Unknown Metoprolol Tartrate [Lopressor] 75 mg PO BID 06/08/13 Unknown Acetaminophen [Arthritis Pain 1,300 mg PO Q8H PRN 08/24/13 Unknown Relief] Multivitamins [Multivitamin Keith] 1 cap PO DAILY 08/24/13 Unknown Apixaban [Eliquis] 5 mg PO BID 07/30/17 Unknown Pioglitazone HCl [Actos] 45 mg PO DAILY 07/30/17 Unknown - Patient's Past Medical History Patient History - Medical: Arthritis, Diabetes Type 2, Depression, GERD, Obesity , Osteoarthritis Patient History - Cardiac/Respiratory: Asthma, Cardiac Arrest, Coronary Heart Disease, CHF, Hypertension, Hyperlipidemia, Myocardial Infarction, CPAP/BiPAP Home Use, Sleep Apnea Patient History - Cancer: Prostate Patient History - Surgical Procedures: Colonoscopy, Cardiac stent, Total Knee Replacement Patient History - Other: None - Family History Father Family History - Medical: Family History - Cancer: Prostate Mother Family History - Medical: - Social History Living Situations: home Abuse History: No History of abuse Psych History: Hx of Anxiety, Hx of Depression Smoking Status: Former smoker Have you smoked in the past 12 months: No Do you dip or chew tobacco: No Alcohol Use: occasionally Drug Use: none - Immunizations Immunizations Up to Date: Yes Hx Pneumococcal Vaccination: Yes History of Influenza Vaccine: Yes Procedures CARPAL TUNNEL RELEASE (08/29/13) CATARAC PHACOEMULS/ASPIR (06/11/13) CLOSURE SKIN & SUBCUTANEOUS NEC (01/22/07) DX ULTRASOUND NEC (04/18/13) ENDO RECTUM POLYPECTOMY (10/23/08) ENDOSC POLYPECTOMY OF LG INTEST (10/23/08) EXCIS KNEE SEMILUN CARTL (09/24/03) INSERT LENS AT CATAR EXT (06/11/13) OTHER REPAIR OF KNEE (09/24/03) PERCUTAN NEEDLE BIOPSY OF PROSTATE (04/18/13) Medications - Medications Current Medications: Current Medications Acetaminophen (Tylenol) 1,300 mg PO Q8H PRN PRN Reason: Pain Stop: 08/30/17 07:06 Last Admin: 07/31/17 09:47 Dose: 1,300 mg Hydrocodone Bitart/Acetaminophen (Flynn 5-325) 1 each PO Q4H PRN PRN Reason: Severe Pain (pain scale 7-10) Stop: 08/30/17 12:07 Last Admin: 08/01/17 09:49 Dose: 1 each Apixaban (Eliquis) 5 mg PO BID YARY Stop: 08/29/17 21:01 Last Admin: 08/01/17 09:51 Dose: 5 mg Enalapril Maleate (Vasotec) 20 mg PO BID YARY Stop: 08/31/17 07:01 Last Admin: 08/01/17 09:55 Dose: 20 mg Escitalopram Oxalate (Lexapro) 10 mg PO HS YARY Stop: 08/29/17 21:01 Last Admin: 07/31/17 22:23 Dose: 10 mg Furosemide (Lasix) 80 mg PO DAILY YARY Stop: 08/31/17 09:01 Last Admin: 08/01/17 09:51 Dose: 80 mg Gabapentin (Neurontin) 600 mg PO TID YARY Stop: 08/29/17 19:46 Last Admin: 08/01/17 12:34 Dose: 600 mg Glipizide (Glucotrol) 5 mg PO BIDAC YARY Stop: 08/29/17 20:01 Last Admin: 08/01/17 07:27 Dose: Not Given Sodium Chloride (Sodium Chloride 0.9%) 500 mls @ 500 mls/hr IV .Q1H PRN PRN Reason: HYDRATION Stop: 08/30/17 03:21 Last Infusion: 07/31/17 04:22 Dose: Infused Sodium Chloride (Sodium Chloride 0.9%) 500 mls @ 500 mls/hr IV .Q1H PRN PRN Reason: HYDRATION Stop: 08/30/17 03:22 Last Infusion: 07/31/17 05:22 Dose: Infused Insulin Glargine (Lantus) 85 units SC QAM YARY Stop: 08/30/17 09:01 Last Admin: 08/01/17 08:53 Dose: Not Given Levofloxacin (Levaquin) 500 mg PO DAILY [facility] PRN Reason: Protocol Stop: 08/31/17 09:31 Last Admin: 08/01/17 09:50 Dose: 500 mg Metoprolol Tartrate 50 mg/ (Metoprolol Tartrate 25 mg) 75 mg PO BID YARY Stop: 08/31/17 09:01 Last Admin: 08/01/17 09:54 Dose: 75 mg Multi-Ingredient Ointment (Aquaphilic Ointment) 1 appl TP BID YARY Stop: 08/31/17 10:46 Last Admin: 08/01/17 12:33 Dose: 1 appl Multivitamins/Folic Acid (Multivitamin Keith) 1 cap PO DAILY YARY Stop: 08/30/17 09:01 Last Admin: 08/01/17 09:51 Dose: 1 cap Nystatin (Mycostatin Powder) 1 appl TP BID PRN PRN Reason: Rash Stop: 08/30/17 12:01 Last Admin: 08/01/17 09:55 Dose: 1 appl Ondansetron HCl (Zofran) 4 mg PO Q6H PRN PRN Reason: Nausea And Vomiting Stop: 08/31/17 10:36 Last Admin: 08/01/17 12:33 Dose: 4 mg Pantoprazole Sodium (Protonix) 20 mg PO BIDBRS [facility] Stop: 08/30/17 07:01 Last Admin: 08/01/17 07:31 Dose: 20 mg Pioglitazone HCl (Actos) 45 mg PO DAILY YARY Stop: 08/30/17 09:01 Last Admin: 08/01/17 09:50 Dose: 45 mg Potassium Chloride (Klor-Con 10) 20 meq PO DAILY [facility] Stop: 08/30/17 09:01 Last Admin: 08/01/17 09:51 Dose: 20 meq Ropinirole HCl (Requip) 3 mg PO HS [facility] Stop: 08/29/17 21:01 Last Admin: 07/31/17 22:24 Dose: 3 mg Rosuvastatin Calcium (Crestor) 30 mg PO HS [facility] Stop: 08/29/17 21:01 Last Admin: 07/31/17 22:23 Dose: 30 mg Saccharomyces Boulardii (Florastor) 250 mg PO BID [facility] Stop: 08/29/17 21:01 Last Admin: 08/01/17 09:50 Dose: 250 mg Physical Examination - Exam Vital Signs: Vital Signs - Last Taken Temp 36.5 C 08/01/17 11:56 Pulse 89 08/01/17 11:56 Resp 20 08/01/17 11:56 BP 134/80 08/01/17 11:56 Pulse Ox 96 08/01/17 11:56 O2 Oxygen Delivery Method Room Air Constitutional: Present: Alert, Oriented x3, No distress, Morbidly obese ENT Exam: Present: hearing grossly normal Abdomen: Present: obese /Rectal: Present: Other - there are no open areas noted to the buttocks. he does have redness in the skin folds of the buttocks. no drainage. Skin Exam: Present: warm/dry - Results and Findings: Lab/Microbiology results last 24 hrs: Abnormal/Pending Laboratory Last 24 HRS 08/01/17 08/01/17 04:55 04:55 RBC 3.31 L Hgb 10.3 L Hct 31.8 L MCH 31.1 H RDW 14.1 H Plt Count 137 L MPV 9.7 H Immature Gran % (Auto) 0.70 H Immature Gran # (Auto) 0.05 H Lymphocytes % 10.9 L Eosinophils % 7.6 H Lymphocytes # 0.79 L BUN 25 H Creatinine 1.52 H D Est GFR (Non-Af Amer) 47 L D Culture 07/30/17 23:51 Group A Streptococcus Screen (KARL) - Final Strep Screen (Group A) Negative 07/30/17 14:56 - Final Nares MRSA Negative - Assessments/Findings (1) Pressure ulcer Problem: Acute Qualifiers: Pressure ulcer location: sacral region Pressure ulcer stage: unstageable Qualified Code(s): L89.150 - Pressure ulcer of sacral region, unstageable (2) Intertrigo Diagnosis(s): Recommend using nystatin powder to the gluteal folds. The area was observed by multiple staff, and no open areas were noted. The patient is large, and observation was difficult. Recommend continuing to change positions often during the day to off-load the area. Continue to monitor for an open wound. Problem: Acute
[2017-08-01] MEDS ORDERED: INSULIN GLARGINE,HUM.REC.ANLOG 100 UNITS/ML VIAL SC ONE (19:30)
[2017-08-01] MEDS: ROSUVASTATIN CALCIUM 10 MG TABLET PO SCH (20:01)
[2017-08-01] MEDS: ESCITALOPRAM OXALATE 10 MG TAB PO SCH (20:03)
[2017-08-01] MEDS: rOPINIRole HCL 1 MG TABLET PO SCH (20:04)
[2017-08-02] MEDS: HYDROcodone/ACETAMINOPHEN 1 EACH TABLET PO PRN (02:58)
--- NOTE | 2017-08-02 05:25 | PN ---
Subjective - Date and Time Seen Date: 08/02/17 Time: 05:24 Subjective Narrative: Pt seen this morning. He has no complaint. There were acute events overnight. Blood cultures still pending. treated according to sepsis, but source of infection was unfound. Objective - Vitals Vitals: Last Vital Signs Temp 36.6 C 08/02/17 03:06 Pulse 94 08/02/17 04:00 Resp 20 08/02/17 03:06 BP 132/88 08/02/17 03:06 Pulse Ox 95 08/02/17 03:06 - Exam Constitutional: Present: Alert, Oriented x3, Cooperative ENT Exam: Present: normal ENT inspection, hearing grossly normal, muffled/ hoarse voice Neck: Present: non-tender, full range of motion, supple Breasts: Present: Exam deferred Respiratory: Present: No rales, No wheezing Cardiovascular/Chest: Present: normal peripheral pulses, regular rate, rhythm Abdomen: Present: Normal bowel sounds, soft, nontender, obese /Rectal: Present: Exam deferred Extremity: Present: normal range of motion, non-tender, normal inspection Skin Exam: Present: other - Flaky BLE Lymphatic: Present: no adenopathy Neurologic: Present: no motor/sensory deficits, alert, oriented x 3 Appearance: Present: appropriate appearance, appropriate insight Eye contact: Present: cooperative, good eye contact, normal speech Thoughts: Present: normal thought pattern, no apparent hallucination Assessment/Plan - Problems/Diagnosis (1) Sepsis Problem: Acute Narrative: Source of infection; unknown. UA -ve, No acute findings on the CXR and Abdominal X-ray. Will be treated according to sepsis with IVF hydration, trend lactic acid, initiate Antibiotics. Started on Zosyn and will continue until blood culture results. Monitor CBC in am. (2) Hypotension Problem: Acute Narrative: 07/31-Hold antihypensives. Given IVF bolus. 08/01- Restart HTN Meds and Lasix (3) Intertrigo Problem: Acute Narrative: Seen by Wound care--->Recommend using nystatin powder to the gluteal folds. The area was observed by multiple staff, and no open areas were noted. The patient is large, and observation was difficult. Recommend continuing to change positions often during the day to off-load the area. Continue to monitor for an open wound. Microbiology 07/30/17 13:40 Buttock - Left Wound Culture - Final Proteus Vulgaris (4) Discharge planning issues Problem: Acute (5) A-fib Problem: Chronic Narrative: Stable- eliquis, metoprolol. telemetry monitoring. (6) CKD (chronic kidney disease) Problem: Chronic Qualifiers: Chronic kidney disease stage: stage 3 (moderate) Qualified Code(s): N18.3 - Chronic kidney disease, stage 3 (moderate) Narrative: Laboratory Tests 07/30/17 07/31/17 08/01/17 11:10 05:05 04:55 Creatinine 1.70 H 1.93 H 1.52 H D 08/02/17 05:20 Creatinine 1.27 (7) Diabetes Problem: Chronic Qualifiers: Diabetes mellitus type: type 2 Narrative: Accu checks ACHS, Consistent Carb diet, On Actos, Glipizide & Lantus. (8) Lymphedema Problem: Chronic (9) HTN (hypertension) Problem: Chronic Qualifiers: Hypertension type: essential hypertension Qualified Code(s): I10 - Essential (primary) hypertension (10) CHF (congestive heart failure) Problem: Chronic Qualifiers: Heart failure type: diastolic Heart failure chronicity: acute on chronic Qualified Code(s): I50.33 - Acute on chronic diastolic (congestive) heart failure (11) Morbid obesity Problem: Chronic (12) HLD (hyperlipidemia) Problem: Chronic (13) Obstructive sleep apnea Problem: Chronic Narrative: Stable- Continue Home CPAP.
[2017-08-02 05:36] LABS: Hematocrit 31.8 % (42.0-52.0); Hemoglobin 10.3 gm/dL (13.5-18.0); Mean Cell Volume 96.1 fl (78-100); Mean Corpuscular Hemoglobin 31.1 pg (27-31); Mean Corpuscular Hgb Conc 32.4 g/dl (32-36); Mean Platelet Volume 10.1 fl (6.0-9.5); Neutrophil # 4.2 K/mm3 (1.3-6.0); Neutrophil % 62.7 % (42-75.0); Platelet Count 153 K/mm3 (150-450); Red Blood Count 3.31 M/mm3 (4.7-6.0); White Blood Count 6.7 K/mm3 (4.0-10.5)
[2017-08-02 05:42] LABS: Anion Gap 9.3 mmol/L (6.8-13.8); BUN/Creatinine Ratio 17.3 (9.0-21.6); Calcium * 8.6 mg/dL (7.9-10.9); Carbon Dioxide 27.2 mmol/L (24-32.6); Estimated Creat Clear 50.9; Potassium 4.5 mmol/L (3.4-4.6)
[2017-08-02] MEDS: PANTOPRAZOLE SODIUM 20 MG TABLET.DR PO SCH (06:59)
[2017-08-02] MEDS: glipiZIDE 5 MG TABLET PO SCH (06:59)
[2017-08-02] MEDS: HYDROPHILIC OINTMENT 454 APPL JAR TP SCH (08:05)
[2017-08-02] MEDS: PIOGLITAZONE HCL 15 MG TABLET PO SCH (08:05)
[2017-08-02] MEDS: FUROSEMIDE 80 MG TABLET PO SCH (08:06)
[2017-08-02] MEDS: INSULIN GLARGINE,HUM.REC.ANLOG 100 UNITS/ML VIAL SC SCH (08:06)
[2017-08-02] MEDS: POTASSIUM CHLORIDE 10 MEQ TABLET.SA PO SCH (08:06)
[2017-08-02] MEDS: SACCHAROMYCES BOULARDII 250 MG CAPSULE PO SCH (08:06)
[2017-08-02] MEDS: APIXABAN 5 MG TABLET PO SCH (08:06)
[2017-08-02] MEDS: LEVOFLOXACIN 500 MG TABLET PO SCH (08:07)
[2017-08-02] MEDS: GABAPENTIN 300 MG CAPSULE PO SCH (08:07)
[2017-08-02] MEDS: METOPROLOL TARTRATE 50 MG, METOPROLOL TARTRATE 25 MG PO SCH ×2 (08:07)
[2017-08-02] MEDS: ENALAPRIL MALEATE 20 MG TABLET PO SCH (08:07)
[2017-08-02] MEDS: MULTIVITAMINS 1 CAP CAPSULE PO SCH (08:07)
--- NOTE | 2017-08-02 08:27 | DS ---
(1) Sepsis Problem: Acute Qualifiers: Sepsis type: sepsis due to unspecified organism Qualified Code(s): A41.9 - Sepsis, unspecified organism (2) A-fib Problem: Chronic (3) CHF (congestive heart failure) Problem: Chronic Qualifiers: Heart failure type: diastolic Heart failure chronicity: acute on chronic Qualified Code(s): I50.33 - Acute on chronic diastolic (congestive) heart failure (4) CKD (chronic kidney disease) Problem: Chronic Qualifiers: Chronic kidney disease stage: stage 3 (moderate) Qualified Code(s): N18.3 - Chronic kidney disease, stage 3 (moderate) (5) Diabetes Problem: Chronic Qualifiers: Diabetes mellitus type: type 2 (6) HLD (hyperlipidemia) Problem: Chronic (7) HTN (hypertension) Problem: Chronic Qualifiers: Hypertension type: essential hypertension Qualified Code(s): I10 - Essential (primary) hypertension (8) Lymphedema Problem: Chronic (9) Morbid obesity Problem: Chronic (10) Obstructive sleep apnea Problem: Chronic (11) Superficial ulcer of skin Diagnosis(s): Proteus Vulgaris on C & S. Problem: Acute Description of Stay: Milind Way is a 82-yr-old WM with a PMH of: Anxiety, A-fib, CAD, Cholelithiasis, Depression, DM II, GERD, HTN, HLD, Morbid Obesity, Osteothathritis, ID, Prostate Ca, Restless Leg Syndrome and TED who was admitted on for weakness and fever. On the night CARBONIZER, he developed chills when he went to bed. On the morning of admission, he woke up feeling like he was "burning." His tried to assist him to sit upright on the bed and he kept falling back. then called the EMS and he was brought to the [facility] ER. He states that he has been coughing a lot lately and that his throat feels sore from the cough. He has not been around ill contacts. He denies N/V, Diarrhea & Abdominal pain. He reports extreme SOB with any activity. At the ED, No infection on UA. The CXR did not show evidence of Pneumonia or pleural effusion, but Cardiomegaly was noted. Abdominal X-ray did not show any signs of Obstruction. He had tachycardia in the 110s ,tachypneic at 24-26 and hypotensive with BP of 80s/40s. [place] [id number]. He was admitted for sepsis. he had a small pressure ulcer which grew Proteus vulgaris. He was started on Zosyn and then levaquin. His WBC count is back to normal . He is very limited with his ambulation due to severe knee pains. He is stable to be discharged. We will get a pelvic xray prior to discharge. Procedures Performed: none Discharge Location: Home Disposition: Home Health Service [facility] Agency: [facility] Home Health Condition: Serious Face to Face Encounter completed per [facility] Guidelines: Yes Discharge Activity: Activity as tolerated Discharge Diet: Consistent carbs, Low salt, Low fat/chol Referrals: Caryn Maza MD [Primary Care Provider] - Additional Patient Instructions (free text): -Please make TCM appointment unless custodial discharge. Thank you! Natalie @ [phone]. [facility]. Nursing, PT/OT and bath aide. Please call report to [phone] and fax orders upon discharge. Follow up with PCP in 1 week. Complete Home Medications List: Complete Home Medication List: Atorvastatin Calcium [Lipitor] 60 mg PO HS 05/17/12 Benazepril HCl [Lotensin] 20 mg PO BID 05/17/12 Escitalopram Oxalate [Lexapro] 10 mg PO HS 05/17/12 Furosemide [Lasix] 140 mg PO DAILY 05/17/12 Insulin Glargine,Hum.rec.anlog [Lantus] 85 unit SQ QAM 05/17/12 Omeprazole [Prilosec] 20 mg PO BID 05/17/12 Potassium Chloride [Klor-Con 10] 20 meq PO DAILY 05/17/12 Gabapentin 600 mg PO TID 04/23/13 glipiZIDE [Glucotrol] 5 mg PO BID 04/24/13 rOPINIRole HCL [Ropinirole HCl] 3 mg PO HS 04/24/13 Metoprolol Tartrate [Lopressor] 75 mg PO BID 06/08/13 Acetaminophen [Arthritis Pain Relief] 1,300 mg PO Q8H PRN 08/24/13 Multivitamins [Multivitamin Keith] 1 cap PO DAILY 08/24/13 Apixaban [Eliquis] 5 mg PO BID 07/30/17 Pioglitazone HCl [Actos] 45 mg PO DAILY 07/30/17 Levofloxacin [Levaquin] 500 mg PO DAILY #7 tablet 08/02/17 Saccharomyces Boulardii [Florastor] 250 mg PO BID capsule 08/02/17
[2017-08-02 10:47] VITALS: BP 115/60
== END 2017-08-02 11:27 | disposition home health service (06) | DRG 871 ==
LOC: ER 10:41 → MS 13:59
PROVIDERS: ADMIT Internal Medicine; ATTEND Internal Medicine
DX: I25.2 Old myocardial infarction; E78.5 Hyperlipidemia, unspecified; Z95.5 Presence of coronary angioplasty implant and graft; Z85.46 Personal history of malignant neoplasm of prostate; L30.4 Erythema intertrigo; E66.01 Morbid (severe) obesity due to excess calories; Z79.01 Long term (current) use of anticoagulants; I48.2 Chronic atrial fibrillation; I12.9 Hypertensive chronic kidney disease with stage 1 through stage 4 chronic kidney disease, or unspecified chronic kidney disease; L89.150 Pressure ulcer of sacral region, unstageable; K21.9 Gastro-esophageal reflux disease without esophagitis; I25.10 Atherosclerotic heart disease of native coronary artery without angina pectoris; Z71.3 Dietary counseling and surveillance; N18.3 Chronic kidney disease, stage 3 (moderate); I50.33 Acute on chronic diastolic (congestive) heart failure; Z68.44 Body mass index [BMI] 60.0-69.9, adult; A41.9 Sepsis, unspecified organism; E11.9 Type 2 diabetes mellitus without complications
CPT/HCPCS: 36415; 71010; 71045; 72170; 74019; 74020; 80048; 80053; 81001; 83519; 83605; 83880; 85025; 85652; 86140; 87040; 87070; 87077; 87081; 87086; 87186; 87400; 87430; 87449; 93005; 94660; 96365; 97162; 99285

== ENCOUNTER 2018-02-28 03:09 | Inpatient (IN) | payer BC, MEDICARE ==
[2018-02-28] MEDS ORDERED: NORMAL SALINE 1,000 ML IV ONE (03:28)
[2018-02-28] MEDS ORDERED: ALBUTEROL SULFATE/IPRATROPIUM 3 ML NEBU IH ONE ×2 (03:29→03:31)
--- NOTE | 2018-02-28 03:39 | ERNOTE ---
Dyspnea - General Presenting Symptoms: shortness of breath, wheezing Time Seen by Provider: 02/28/18 03:24 Source: patient, EMS Exam Limitations: clinical condition - Immun/Allergies/Home Medications Immunizations: IMMUNIZATION HX Immunizations Up to Date Yes History of Influenza Vaccine Yes Hx Pneumococcal Vaccination Yes Allergies/Adverse Reactions: Allergies No Known Drug Allergies Allergy (Verified 02/28/18 03:15) Home Medications: HOME MEDICATIONS Escitalopram Oxalate [Lexapro] 10 mg PO DAILY 05/17/12 [Last Taken 04/22/13] Omeprazole [Prilosec] 20 mg PO BID 05/17/12 [Last Taken 04/23/13] Gabapentin 900 mg PO DAILY 04/23/13 [Last Taken 04/22/13] Acetaminophen [Arthritis Pain Relief] 1,300 mg PO Q8H PRN 08/24/13 [Last Taken Unknown] Multivitamins [Multivitamin Keith] 1 cap PO DAILY 08/24/13 [Last Taken Unknown] Apixaban [Eliquis] 5 mg PO BID 02/28/18 [Last Taken Unknown] Atorvastatin Calcium 60 mg PO DAILY 02/28/18 [Last Taken Unknown] Benazepril HCl 20 mg PO BID 02/28/18 [Last Taken Unknown] Furosemide [Lasix] 120 mg PO DAILY 02/28/18 [Last Taken Unknown] Insulin Glargine,Hum.rec.anlog [Lantus Solostar] 85 unit SQ DAILY 02/28/18 [Last Taken Unknown] Metoprolol Tartrate [Lopressor] 75 mg PO BID 02/28/18 [Last Taken Unknown] Pioglitazone HCl [Actos] 30 mg PO DAILY 02/28/18 [Last Taken Unknown] Potassium Chloride [Klor-Con 10] 10 meq PO DAILY 02/28/18 [Last Taken Unknown] rOPINIRole HCL [Ropinirole HCl] 3 mg PO HS 02/28/18 [Last Taken Unknown] - History of Present Illness Narrative: Pt has become more short of breath over the past 24-48 hours. He denies fever or chills. 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 Absent: vomiting Skin: Present: lesions - pressure ulcers Medical History (Last Reviewed 02/28/18 @ 03:32 by Juan Henderson DO) Morbid obesity (Chronic) Onset Date: Unknown DJD (degenerative joint disease) of knee (Chronic) Onset Date: ~12/21/12 Hypertension (Chronic) Onset Date: Unknown History of gastroesophageal reflux (GERD) (Chronic) Onset Date: Unknown Elevated prostate specific antigen (PSA) (Chronic) Onset Date: Unknown Edema (Chronic) Onset Date: Unknown Diabetic neuropathy (Chronic) Onset Date: Unknown Diabetes 1.5, managed as type 2 (Chronic) Onset Date: ~01/2006 Depression (Chronic) Onset Date: Unknown CAD (coronary artery disease) (Chronic) Onset Date: Unknown Bursitis (Chronic) Onset Date: Unknown ADD (attention deficit disorder) (Chronic) Onset Date: Unknown adult Atrial fibrillation (Chronic) Onset Date: ~03/2013 Anxiety (Chronic) Onset Date: Unknown Cardiac arrest Onset Date: ~1992 [place] Myocardial infarction Onset Date: ~1992 Prostate cancer Onset Date: ~2013 low grade Cholelithiasis Onset Date: ~10/2004 Colon neoplasm Onset Date: Unknown Obstructive sleep apnea Onset Date: Unknown Osteoarthritis Onset Date: Unknown Panic attacks Onset Date: Unknown Restless legs Onset Date: Unknown Surgical History: Surgical History (Last Reviewed 02/28/18 @ 03:33 by Juan Henderson DO) Cataract Onset Date: ~04/2013 H/O adenoidectomy Onset Date: Unknown H/O knee surgery Onset Date: Unknown arthroscopic right Dr. Crowell H/O prostate biopsy Onset Date: ~2013 History of angioplasty Onset Date: ~1992 stent 1994 History of carpal tunnel release Onset Date: ~05/18/12 08/29/13; '[address] Orantes, '[address] Julian History of shoulder surgery Onset Date: Unknown Dr. Crowell; Bilateral History of tonsillectomy Onset Date: Unknown Stented coronary artery Onset Date: ~1992 6 cardiac stents in 1992 another stent procedure in 1994 Family History: Family History (Last Reviewed 02/28/18 @ 03:33 by Juan Henderson DO) Father , unknown age Cancer Prostate Mother , unknown age No problems noted. Social History: Preferred Language Kyrgyz Do you have any zoroastrian or No cultural preference? Smoking Status Never smoker Have you smoked in the past 12 No months Do you dip or chew tobacco No Abuse History No History of abuse Psych History Hx of Anxiety,Hx of Depression Alcohol Use none Drug Use none (Last Updated 12/05/17 @ 13:16 by Genet Nixon RN) No Social History Section defined Physical Exam - Physical Exam General Appearance: Present: wd/wn, alert, mild distress, anxious Head Exam: Present: normal inspection, no evidence of injury Eye Exam: Normal inspection: bilateral Neck: Present: normal inspection, nontender, supple Respiratory: Present: decreased breath sounds - throughout, wheezing - intermittently Cardiovascular/Chest: Present: irregularly irregular - distant heart sounds Gastrointestinal/Abdominal: Present: normal bowel sounds, nontender Extremity Exam: Present: decreased range of motion, extremity edema - massive edema and stasis dermatitis b/l LE. Neurological Exam: Present: alert, normal mood/affect Skin Exam: Present: other - skin generally dry and flaky. LE's show thickening of the skin, flaking and discoloration ED Progress - Results and Orders Patient's Lab Results:: I have reviewed the patient's lab results. Results and Orders: Laboratory Tests 02/28/18 02/28/18 02/28/18 03:51 04:00 04:05 WBC 17.1 H Hgb 11.2 L Hct 33.7 L Plt Count 165 Neutrophils % 91.2 H pCO2 31.9 L pO2 78.3 L HCO3 19.8 L Total CO2 20.8 Base Excess -4.0 L ABG pH 7.41 ABG O2 Sat (Measured) 94.5 Sodium Potassium Chloride BUN Creatinine Random Glucose Lactic Acid, Venous 2.3 H* Calcium Total Bilirubin AST ALT Alkaline Phosphatase Troponin I B-Natriuretic Peptide Total Protein Albumin Urine Color Urine Appearance Urine pH Ur Specific [place] Urine Protein Urine Glucose (UA) Urine Ketones Urine Blood Urine Nitrate Urine Bilirubin Prot Sulfosalicylic Acd Urine Urobilinogen Ur Leukocyte Esterase Urine RBC Urine WBC Ur Epithelial Cells Urine Bacteria Urine Culture Comments 02/28/18 02/28/18 04:05 05:16 WBC Hgb Hct Plt Count Neutrophils % pCO2 pO2 HCO3 Total CO2 Base Excess ABG pH ABG O2 Sat (Measured) Sodium 133 Potassium 4.8 H Chloride 102 BUN 24 H Creatinine 1.42 H Random Glucose 131 H Lactic Acid, Venous Calcium 8.3 Total Bilirubin 1.0 AST 34 ALT 29 Alkaline Phosphatase 130 Troponin I 0.036 B-Natriuretic Peptide 3113 H Total Protein 6.8 Albumin 3.0 L Urine Color Yellow Urine Appearance Clear Urine pH 5.5 Ur Specific [place] 1.025 Urine Protein 15 H Urine Glucose (UA) Negative Urine Ketones Negative Urine Blood Negative Urine Nitrate Negative Urine Bilirubin Negative Prot Sulfosalicylic Acd Negative Urine Urobilinogen Normal Ur Leukocyte Esterase Negative Urine RBC None seen Urine WBC None seen Ur Epithelial Cells None seen Urine Bacteria 1+ H Urine Culture Comments No culture indicated - Vital Signs Patient's Vital Signs:: I have reviewed the patient's vital signs. Vital Signs: Vital Signs 02/28/18 03:21 02/28/18 03:28 Temperature 37.6 C Pulse Rate 136 H 135 H Respiratory Rate 15 Blood Pressure 122/58 O2 Sat by Pulse Oximetry 94 - EKG EKG: atrial fibrillation, premature ventricular contraction EKG read: Interp. by me - X-Ray X-Ray #1 X-Ray: chest Interpretation: Interp. by me X-ray Comments: pulmonary edema or may be technique and body habitus. No effusion or infiltrate. - Progress/Reassessment Chief Complaint: Dyspnea Progress:: Improved Progress Note-Subjective: 02/28/18 06:[address] Maza and he agrees with treating for sepsis and he will watch for fluid overload and treat with lasix if that occurs. Departure Clinical Impression: Sepsis Qualifiers: Sepsis type: sepsis due to unspecified organism Qualified Code(s): A41.9 - Sepsis, unspecified organism - Departure Disposition: Still a patient Condition: Fair
[2018-02-28 04:15] LABS: Hematocrit 33.7 % (42.0-52.0); Hemoglobin 11.2 gm/dL (13.5-18.0); Mean Cell Volume 95.7 fl (78-100); Mean Corpuscular Hemoglobin 31.8 pg (27-31); Mean Corpuscular Hgb Conc 33.2 g/dl (32-36); Mean Platelet Volume 9.6 fl (8-11.3); Neutrophil # 15.6 K/mm3 (1.3-6.0); Neutrophil % 91.2 % (42-75.0); Platelet Count 165 K/mm3 (150-450); Red Blood Count 3.52 M/mm3 (4.7-6.0); Red Cell Distribution Width 13.8 % (11.5-14.0); White Blood Count 17.1 K/mm3 (4.0-10.5)
[2018-02-28 04:31] LABS: Troponin I 0.036 ng/mL (0.00-0.10)
[2018-02-28 04:33] LABS: Anion Gap 9.7 mmol/L (6.8-13.8); BUN/Creatinine Ratio 16.9 (9.0-21.6); Ca. Corrected For Albumin 8.8 mg/dL (8.4-10.2); Calcium * 8.3 mg/dL (7.9-10.9); Carbon Dioxide 26.1 mmol/L (24-32.6); Potassium 4.8 mmol/L (3.4-4.6); Total Protein 6.8 gm/dL (6.2-8.2)
[2018-02-28 05:31] LABS: Urine Bilirubin Negative (NEGATIVE); Urine Blood Negative /ul (NEGATIVE); Urine Ketone Negative (NEGATIVE); Urine Nitrite Negative (NEGATIVE); Urine Protein 15 mg/dL (NEGATIVE); Urine Specific Gravity 1.025 SP.GR. (1.005-1.030); Urine Urobilinogen Normal (NORMAL); Urine pH 5.5 pH (5.0-7.0)
[2018-02-28 05:37] LABS: Urine Appearance Clear (CLEAR); Urine Bacteria 1+; Urine Color Yellow; Urine RBC None Seen /hpf (0-5); Urine WBC None Seen /hpf (0-5)
[2018-02-28] MEDS ORDERED: PROCHLORPERAZINE EDISYLATE 5 MG/ML VIAL IV ONE (06:07)
[2018-02-28] MEDS ORDERED: SODIUM CHLORIDE IV PRN (06:24)
[2018-02-28] MEDS ORDERED: NORMAL SALINE 1,000 ML IV PRN (07:51)
[2018-02-28] MEDS ORDERED: ACETAMINOPHEN 650 MG TABLET PO PRN (08:48)
[2018-02-28] MEDS ORDERED: INSULIN GLARGINE,HUM.REC.ANLOG 100 UNITS/ML VIAL SC SCH (09:00)
[2018-02-28] MEDS ORDERED: ENALAPRIL MALEATE 20 MG TABLET PO SCH (09:00)
[2018-02-28] MEDS ORDERED: FUROSEMIDE 40 MG TABLET PO SCH (09:00)
[2018-02-28] MEDS: METOPROLOL TARTRATE 25 MG TABLET PO SCH ×2 (09:06→20:54)
[2018-02-28] MEDS: NORMAL SALINE 1,000 ML IV PRN ×2 (09:11→20:46)
[2018-02-28] MEDS ORDERED: PIPERACILLIN SODIUM/TAZOBACTAM 2.25 GM VIAL IV SCH (09:15)
--- NOTE | 2018-02-28 09:15 | HP ---
Chief Complaint - Chief Complaint Date of Service: 02/28/18 Time of Service: 08:52 Chief Complaint: shortness of breath History of Present Illness: Seamus, is an 83-year-old white male, with past medical history of atrial fibrillation on chronic coronary artery disease, diabetes mellitus type 2, diabetic to neuropathy, hypertension, hyperlipidemia, morbid obesity, obstructive sleep apnea, who was admitted on 02/28/2018 because of increasing shortness of breath. One day prior to admission patient started having shortness of breath associated with cough productive of whitish phlegm and wheezing. He did admit to having some fever and chills. This morning his shortness of breath got worse and he also said that he choked on an egg. He went to our emergency room were CXR showed central pulmonary congestion, mildly enlarged cardiac [place]. His WBC is elevated. His BNP was elevated at 3000. His lactic acid was elevated. 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 Depression (Chronic) Onset Date: Unknown CAD (coronary artery disease) (Chronic) Onset Date: Unknown Bursitis (Chronic) Onset Date: Unknown ADD (attention deficit disorder) (Chronic) Onset Date: Unknown adult Atrial fibrillation (Chronic) Onset Date: ~03/2013 Anxiety (Chronic) Onset Date: Unknown Cardiac arrest Onset Date: ~1992 [place] Myocardial infarction Onset Date: ~1992 Prostate cancer Onset Date: ~2013 low grade Cholelithiasis Onset Date: ~10/2004 Colon neoplasm Onset Date: Unknown Obstructive sleep apnea Onset Date: Unknown Osteoarthritis Onset Date: Unknown Panic attacks Onset Date: Unknown Restless legs Onset Date: Unknown Surgical History: Surgical History (Last Reviewed 02/28/18 @ 08:36 by Nataliia Bryant RN) Cataract Onset Date: ~04/2013 H/O adenoidectomy Onset Date: Unknown H/O knee surgery Onset Date: Unknown arthroscopic right Dr. Crowell H/O prostate biopsy Onset Date: ~2013 History of angioplasty Onset Date: ~1992 stent 1994 History of carpal tunnel release Onset Date: ~05/18/12 08/29/13; '[address] Orantes, '[address] Julian History of shoulder surgery Onset Date: Unknown Dr. Crowell; Bilateral History of tonsillectomy Onset Date: Unknown Stented coronary artery Onset Date: ~1992 6 cardiac stents in 1992 another stent procedure in 1994 Family History: Family History (Last Reviewed 02/28/18 @ 08:36 by Nataliia Bryant RN) Father , unknown age Cancer Prostate Mother , unknown age No problems noted. Social History: Preferred Language Kyrgyz Do you have any quaker or No cultural preference? Smoking Status Never smoker Have you smoked in the past 12 No months Do you dip or chew tobacco No Abuse History No History of abuse Psych History Hx of Anxiety,Hx of Depression Alcohol Use none Drug Use none (Last Updated 12/05/17 @ 13:16 by Genet Nixon RN) No Social History Section defined Review Of Systems (GEN) - Review of Systems Generalized/Overall Review: Present: Chills, Fever Respiratory: Present: Cough, Shortness of Breath. Absent: Wheezing Cardiac: Present: Palpitations. Absent: Chest Pain, Edema Abdominal: Present: Nausea. Absent: Vomiting Genitourinary: Absent: Urgency, Frequency Musculoskeletal: Present: Joint Pain Immunizations: IMMUNIZATION HX Immunizations Up to Date Yes History of Influenza Vaccine Yes Hx Pneumococcal Vaccination Yes Allergies/Adverse Reactions: Allergies Allergy/AdvReac Type Severity Reaction Status Date / Time No Known Drug Allergies Allergy Verified 02/28/18 08:29 Home Medications: HOME MEDICATIONS Escitalopram Oxalate [Lexapro] 10 mg PO DAILY 05/17/12 [Last Taken 04/22/13] Omeprazole [Prilosec] 20 mg PO BID 05/17/12 [Last Taken 04/23/13] Gabapentin 900 mg PO DAILY 04/23/13 [Last Taken 04/22/13] Acetaminophen [Arthritis Pain Relief] 1,300 mg PO Q8H PRN 08/24/13 [Last Taken Unknown] Multivitamins [Multivitamin Keith] 1 cap PO DAILY 08/24/13 [Last Taken Unknown] Apixaban [Eliquis] 5 mg PO BID 02/28/18 [Last Taken Unknown] Atorvastatin Calcium 60 mg PO DAILY 02/28/18 [Last Taken Unknown] Benazepril HCl 20 mg PO BID 02/28/18 [Last Taken Unknown] Furosemide [Lasix] 120 mg PO DAILY 02/28/18 [Last Taken Unknown] Insulin Glargine,Hum.rec.anlog [Lantus Solostar] 85 unit SQ DAILY 02/28/18 [Last Taken Unknown] Metoprolol Tartrate [Lopressor] 75 mg PO BID 02/28/18 [Last Taken Unknown] Pioglitazone HCl [Actos] 30 mg PO DAILY 02/28/18 [Last Taken Unknown] Potassium Chloride [Klor-Con 10] 10 meq PO DAILY 02/28/18 [Last Taken Unknown] glipiZIDE [Glipizide] 5 mg PO BID 02/28/18 [Last Taken Unknown] rOPINIRole HCL [Ropinirole HCl] 3 mg PO HS 02/28/18 [Last Taken Unknown] Exam - Exam Vital Signs: Vital Signs - Last Taken Temp 36.8 C 02/28/18 07:20 Pulse 132 H 02/28/18 08:00 Resp 28 H 02/28/18 07:20 BP 103/49 02/28/18 07:20 Pulse Ox 95 02/28/18 07:20 Constitutional: Present: Alert, Oriented x3, Cooperative, Mild distress ENT Exam: Present: hearing grossly normal Eye Exam: bilateral eye: normal inspection, PERRL, EOMI Neck: Present: supple Respiratory: Present: decreased breath sounds. Absent: crackles, rales, wheezing Cardiovascular/Chest: Present: no JVD, no murmur, irregularly irregular Abdomen: Present: Normal bowel sounds, soft, nontender, nondistended Extremity: Present: no calf tenderness, lower extremity edema Diagnostic Studies: Abnormal Lab Results 02/28/18 02/28/18 02/28/18 Range/Units 03:51 04:00 04:05 WBC 17.1 H (4.0-10.5) K/mm3 RBC 3.52 L (4.7-6.0) M/mm3 Hgb 11.2 L (13.5-18.0) gm/dL Hct 33.7 L (42.0-52.0) % MCH 31.8 H (27-31) pg Immature Gran % (Auto) 0.60 H (0.001-0.429) % Immature Gran # (Auto) 0.10 H (0.000-0.0310) K/mm3 Neutrophils % 91.2 H (42-75.0) % Lymphocytes % 2.9 L (20-51) % Neutrophils # 15.6 H (1.3-6.0) K/mm3 Lymphocytes # 0.50 L (1.5-3.5) k/mm3 pCO2 31.9 L (35.0-48.0) mmHg pO2 78.3 L (83.0-108.0) mmHg HCO3 19.8 L (21.0-28.0) mmol/L Base Excess -4.0 L (-2.0-3.0) mmol/L Potassium (3.4-4.6) mmol/L BUN (6-23) mg/dL Creatinine (0.4-1.4) mg/dL Est GFR (Non-Af Amer) (60-130) mL/min Random Glucose (70-110) mg/dL Lactic Acid, Venous 2.3 H* (0.4-2.0) mmol/L B-Natriuretic Peptide (5-650) pg/mL Albumin (3.4-5.0) gm/dl Urine Protein (NEGATIVE) mg/dL Urine Bacteria (NONE) 02/28/18 02/28/18 02/28/18 Range/Units 04:05 05:16 08:00 WBC (4.0-10.5) K/mm3 RBC (4.7-6.0) M/mm3 Hgb (13.5-18.0) gm/dL Hct (42.0-52.0) % MCH (27-31) pg Immature Gran % (Auto) (0.001-0.429) % Immature Gran # (Auto) (0.000-0.0310) K/mm3 Neutrophils % (42-75.0) % Lymphocytes % (20-51) % Neutrophils # (1.3-6.0) K/mm3 Lymphocytes # (1.5-3.5) k/mm3 pCO2 (35.0-48.0) mmHg pO2 (83.0-108.0) mmHg HCO3 (21.0-28.0) mmol/L Base Excess (-2.0-3.0) mmol/L Potassium 4.8 H (3.4-4.6) mmol/L BUN 24 H (6-23) mg/dL Creatinine 1.42 H (0.4-1.4) mg/dL Est GFR (Non-Af Amer) 51 L (60-130) mL/min Random Glucose 131 H (70-110) mg/dL Lactic Acid, Venous 2.8 H* (0.4-2.0) mmol/L B-Natriuretic Peptide 3113 H (5-650) pg/mL Albumin 3.0 L (3.4-5.0) gm/dl Urine Protein 15 H (NEGATIVE) mg/dL Urine Bacteria 1+ H (NONE) Laboratory Results WBC 17.1 K/mm3 (4.0-10.5) H 02/28/18 04:05 RBC 3.52 M/mm3 (4.7-6.0) L 02/28/18 04:05 Hgb 11.2 gm/dL (13.5-18.0) L 02/28/18 04:05 Hct 33.7 % (42.0-52.0) L 02/28/18 04:05 MCV 95.7 fl (78-100) 02/28/18 04:05 MCH 31.8 pg (27-31) H 02/28/18 04:05 MCHC 33.2 g/dl (32-36) 02/28/18 04:05 RDW 13.8 % (11.5-14.0) 02/28/18 04:05 Plt Count 165 K/mm3 (150-450) 02/28/18 04:05 MPV 9.6 fl (8-11.3) 02/28/18 04:05 Immature Gran % (Auto) 0.60 % (0.001-0.429) H 02/28/18 04:05 Immature Gran # (Auto) 0.10 K/mm3 (0.000-0.0310) H 02/28/18 04:05 Neutrophils % 91.2 % (42-75.0) H 02/28/18 04:05 Lymphocytes % 2.9 % (20-51) L 02/28/18 04:05 Monocytes % 4.5 % (0.0-9) 02/28/18 04:05 Eosinophils % 0.5 % (0.0-3.0) 02/28/18 04:05 Basophils % 0.3 % (0.0-1.0) 02/28/18 04:05 Nucleated RBC % 0.0 k/mm3 (0-1) 02/28/18 04:05 Neutrophils # 15.6 K/mm3 (1.3-6.0) H 02/28/18 04:05 Lymphocytes # 0.50 k/mm3 (1.5-3.5) L 02/28/18 04:05 Monocytes # 0.8 k/mm3 (0.0-1.0) 02/28/18 04:05 Eosinophils # 0.1 k/mm3 (0.0-0.7) 02/28/18 04:05 Absolute Basophils 0.1 k/mm3 (0.0-0.1) 02/28/18 04:05 pCO2 31.9 mmHg (35.0-48.0) L 02/28/18 03:51 pO2 78.3 mmHg (83.0-108.0) L 02/28/18 03:51 HCO3 19.8 mmol/L (21.0-28.0) L 02/28/18 03:51 Total CO2 20.8 mmol/L (19.0-24.0) 02/28/18 03:51 Base Excess -4.0 mmol/L (-2.0-3.0) L 02/28/18 03:51 ABG pH 7.41 (7.35-7.45) 02/28/18 03:51 ABG O2 Sat (Measured) 94.5 % (94.0-98.0) 02/28/18 03:51 Sodium 133 mmol/L (132-142) 02/28/18 04:05 Plasma Sodium 133 mmol/L (130-142) 02/28/18 04:05 Potassium 4.8 mmol/L (3.4-4.6) H 02/28/18 04:05 Chloride 102 mmol/L (97-106) 02/28/18 04:05 Carbon Dioxide 26.1 mmol/L (24-32.6) 02/28/18 04:05 Anion Gap 9.7 mmol/L (6.8-13.8) 02/28/18 04:05 BUN 24 mg/dL (6-23) H 02/28/18 04:05 Creatinine 1.42 mg/dL (0.4-1.4) H 02/28/18 04:05 Est GFR (Non-Af Amer) 51 mL/min (60-130) L 02/28/18 04:05 BUN/Creatinine Ratio 16.9 (9.0-21.6) 02/28/18 04:05 Random Glucose 131 mg/dL (70-110) H 02/28/18 04:05 Lactic Acid, Venous 2.8 mmol/L (0.4-2.0) H* 02/28/18 08:00 Calcium 8.3 mg/dL (7.9-10.9) 02/28/18 04:05 Calcium Adj for Albumin 8.8 mg/dL (8.4-10.2) 02/28/18 04:05 Total Bilirubin 1.0 mg/dL (0.0-1.1) 02/28/18 04:05 AST 34 U/L (0-48) 02/28/18 04:05 ALT 29 U/L (19-67) 02/28/18 04:05 Alkaline Phosphatase 130 U/L (50-170) 02/28/18 04:05 Troponin I 0.036 ng/mL (0.00-0.10) 02/28/18 04:05 B-Natriuretic Peptide 3113 pg/mL (5-650) H 02/28/18 04:05 Total Protein 6.8 gm/dL (6.2-8.2) 02/28/18 04:05 Albumin 3.0 gm/dl (3.4-5.0) L 02/28/18 04:05 Urine Color Yellow 02/28/18 05:16 Urine Appearance Clear (CLEAR) 02/28/18 05:16 Urine pH 5.5 pH (5.0-7.0) 02/28/18 05:16 Ur Specific [place] 1.025 SP.GR. (1.005-1.030) 02/28/18 05:16 Urine Protein 15 mg/dL (NEGATIVE) H 02/28/18 05:16 Urine Glucose (UA) Negative mg/dL (NEGATIVE) 02/28/18 05:16 Urine Ketones Negative mg/dL (NEGATIVE) 02/28/18 05:16 Urine Blood Negative /ul (NEGATIVE) 02/28/18 05:16 Urine Nitrate Negative (NEGATIVE) 02/28/18 05:16 Urine Bilirubin Negative mg/dl (NEGATIVE) 02/28/18 05:16 Prot Sulfosalicylic Acd Negative mg/dL (0) 02/28/18 05:16 Urine Urobilinogen Normal EU/dl (NORMAL) 02/28/18 05:16 Ur Leukocyte Esterase Negative /ul (NEGATIVE) 02/28/18 05:16 Urine RBC None seen /hpf (0-5) 02/28/18 05:16 Urine WBC None seen /hpf (0-5) 02/28/18 05:16 Ur Epithelial Cells None seen /hpf (0-5) 02/28/18 05:16 Urine Bacteria 1+ (NONE) H 02/28/18 05:16 Urine Culture Comments No culture indicated 02/28/18 05:16 Assessment/Plan - Assessment/Plan (1) Dyspnea Assessment: likely due to acute bronchitis with possible aspiration pneumonitis/pneumonia this morning.r/o sepsis. will continue with IV antibiotics. continue with breathing treatment Problem: Acute Qualifiers: Dyspnea type: shortness of breath Qualified Code(s): R06.02 - Shortness of breath; R06.00 - Dyspnea, unspecified; R06.01 - Orthopnea (2) Elevated brain natriuretic peptide (BNP) level Assessment: likely due to pulmonary etiology. will continue with O2 and breathing treatments. Problem: Acute (3) Morbid obesity Problem: Chronic (4) Hypertension Problem: Chronic Qualifiers: Hypertension type: essential hypertension Qualified Code(s): I10 - Essential (primary) hypertension (5) Diabetic neuropathy Problem: Chronic Qualifiers: Diabetes mellitus type: type 2 (6) CAD (coronary artery disease) Problem: Chronic (7) A-fib Problem: Chronic Qualifiers: Atrial fibrillation type: chronic Qualified Code(s): I48.2 - Chronic atrial fibrillation (8) Diabetes Problem: Chronic Qualifiers: Diabetes mellitus type: type 2 (9) HTN (hypertension) Problem: Chronic Qualifiers: Hypertension type: essential hypertension Qualified Code(s): I10 - Essential (primary) hypertension (10) HLD (hyperlipidemia) Problem: Chronic Qualifiers: Hyperlipidemia type: pure hypercholesterolemia Qualified Code(s): E78.00 - Pure hypercholesterolemia, unspecified; E78.0 - Pure hypercholesterolemia (11) Lactic acidosis Assessment: due to hypoxia/DM r/o sepsis. Problem: Acute (12) Lymphedema Problem: Chronic
[2018-02-28] MEDS: GABAPENTIN 300 MG CAPSULE PO SCH (09:18)
[2018-02-28] MEDS: APIXABAN 5 MG TABLET PO SCH ×2 (09:19→20:54)
[2018-02-28] MEDS: POTASSIUM CHLORIDE 10 MEQ TABLET.SA PO SCH (09:19)
[2018-02-28] MEDS: ESCITALOPRAM OXALATE 10 MG TAB PO SCH (09:19)
[2018-02-28] MEDS: PANTOPRAZOLE SODIUM 20 MG TABLET.DR PO SCH ×2 (09:19→20:56)
[2018-02-28] MEDS ORDERED: ALBUTEROL SULFATE/IPRATROPIUM 3 ML NEBU IH PRN (09:22)
[2018-02-28] MEDS: AMPICILLIN SODIUM/SULBACTAM NA 3 GM in NORMAL SALINE 100 ML IV SCH ×3 (10:48→21:00)
[2018-02-28] MEDS: traMADol HCL 50 MG TABLET PO PRN ×2 (11:37→19:09)
[2018-02-28] MEDS ORDERED: DEXTROSE 5%-NORMAL SALINE 1,000 ML IV ONE (13:58)
--- NOTE | 2018-02-28 15:46 | PN ---
Progess Note - Interim Date: 02/28/18 Time: 15:42 Narrative: 02/28/18 15:42 Lab called that he is growing gram positive cocci in chains on his blood culture. He is on Unasyn which will cover PCN sensitive enteroccocci. He had ceftriaxone this morning which will cover streptococci. will await final C & S.
[2018-02-28] MEDS: INSULIN LISPRO 100 UNITS/ML VIAL SC SCH (16:03)
[2018-02-28] MEDS: ROSUVASTATIN CALCIUM 10 MG TABLET PO SCH (20:55)
[2018-02-28] MEDS: rOPINIRole HCL 1 MG TABLET PO SCH (20:56)
[2018-02-28] MEDS: SACCHAROMYCES BOULARDII 250 MG CAPSULE PO SCH (20:56)
[2018-03-01] MEDS: DEXTROSE 5%-NORMAL SALINE 1,000 ML IV PRN ×4 (02:44→20:29)
[2018-03-01] MEDS: AMPICILLIN SODIUM/SULBACTAM NA 3 GM in NORMAL SALINE 100 ML IV SCH (03:57)
[2018-03-01 07:33] LABS: Hematocrit 30.7 % (42.0-52.0); Mean Cell Volume 98.4 fl (78-100); Mean Corpuscular Hemoglobin 32.1 pg (27-31); Mean Corpuscular Hgb Conc 32.6 g/dl (32-36); Mean Platelet Volume 9.9 fl (8-11.3); Neutrophil # 9.7 K/mm3 (1.3-6.0); Platelet Count 124 K/mm3 (150-450); Red Blood Count 3.12 M/mm3 (4.7-6.0); Red Cell Distribution Width 14.5 % (11.5-14.0); White Blood Count 11.4 K/mm3 (4.0-10.5)
[2018-03-01] MEDS: INSULIN LISPRO 100 UNITS/ML VIAL SC SCH ×4 (07:33→22:03)
[2018-03-01 07:40] LABS: BUN/Creatinine Ratio 14.9 (9.0-21.6); Carbon Dioxide 24.5 mmol/L (24-32.6); Potassium 4.5 mmol/L (3.4-4.6)
[2018-03-01] MEDS ORDERED: AZITHROMYCIN 500 MG in DEXTROSE 5 % IN WATER 250 ML IV ONE ×2 (08:39)
--- NOTE | 2018-03-01 08:48 | PN ---
Subjective - Date and Time Seen Date: 03/01/18 Time: 08:30 Subjective Narrative: Patient is feeling better. Afebrile. Cr is up. WBC is down. Lab called - BC strep species x 2 bottles. Objective - Review of Systems Generalized/Overall Review: Denies: Chills, Fever Respiratory: Reports: Cough, Shortness of Breath Cardiac: Reports: Edema. Denies: Chest Pain, Palpitations Abdominal: Denies: Nausea, Vomiting Genitourinary Symptoms: Denies: Urgency, Frequency Musculoskeletal Complaints: Reports: Joint Pain, Back Pain - Vitals Vitals: Last Vital Signs Temp 37.1 C 03/01/18 07:10 Pulse 91 03/01/18 07:10 Resp 13 03/01/18 07:10 BP 121/75 03/01/18 07:10 Pulse Ox 92 L 03/01/18 07:10 - Abnormal Lab Findings Abnormal Lab Findings: Abnormal Lab Results 02/28/18 02/28/18 03/01/18 Range/Units 08:00 09:39 07:13 WBC 11.4 H D (4.0-10.5) K/mm3 RBC 3.12 L (4.7-6.0) M/mm3 Hgb 10.0 L (13.5-18.0) gm/dL Hct 30.7 L (42.0-52.0) % MCH 32.1 H (27-31) pg RDW 14.5 H (11.5-14.0) % Plt Count 124 L (150-450) K/mm3 Immature Gran # (Auto) 0.05 H (0.000-0.0310) K/mm3 Neutrophils % 85.0 H (42-75.0) % Lymphocytes % 6.0 L (20-51) % Neutrophils # 9.7 H (1.3-6.0) K/mm3 Lymphocytes # 0.68 L (1.5-3.5) k/mm3 pCO2 29.7 L (35.0-48.0) mmHg pO2 82.2 L (83.0-108.0) mmHg HCO3 19.6 L (21.0-28.0) mmol/L Base Excess -3.6 L (-2.0-3.0) mmol/L BUN (6-23) mg/dL Creatinine (0.4-1.4) mg/dL Est GFR (Non-Af Amer) (60-130) mL/min Random Glucose (70-110) mg/dL Lactic Acid, Venous 2.8 H* (0.4-2.0) mmol/L 03/01/18 Range/Units 07:13 WBC (4.0-10.5) K/mm3 RBC (4.7-6.0) M/mm3 Hgb (13.5-18.0) gm/dL Hct (42.0-52.0) % MCH (27-31) pg RDW (11.5-14.0) % Plt Count (150-450) K/mm3 Immature Gran # (Auto) (0.000-0.0310) K/mm3 Neutrophils % (42-75.0) % Lymphocytes % (20-51) % Neutrophils # (1.3-6.0) K/mm3 Lymphocytes # (1.5-3.5) k/mm3 pCO2 (35.0-48.0) mmHg pO2 (83.0-108.0) mmHg HCO3 (21.0-28.0) mmol/L Base Excess (-2.0-3.0) mmol/L BUN 38 H D (6-23) mg/dL Creatinine 2.55 H D (0.4-1.4) mg/dL Est GFR (Non-Af Amer) 26 L D (60-130) mL/min Random Glucose 113 H (70-110) mg/dL Lactic Acid, Venous (0.4-2.0) mmol/L - Exam Constitutional: Present: Alert, Oriented x3, Cooperative ENT Exam: Present: hearing grossly normal Neck: Present: supple Respiratory: Present: decreased breath sounds, wheezing, No rales Cardiovascular/Chest: Present: no JVD, no murmur, irregularly irregular Abdomen: Present: Normal bowel sounds, soft, nontender, nondistended - slightly erythematous Extremity: Present: no calf tenderness, lower extremity edema Cauti Physician Documentation - Urinary Catheter Management Urethral (Sheehan) Date of Insertion: 03/01/18 Time of Insertion: 10:45 Assessment/Plan - Problems/Diagnosis (1) Bacteremia Problem: Acute Narrative: Strep species, gram positive cocci in chains-will continue with IV rocephin. d/c Unasyn for now. add Azithromycin . likely source of bacteria is pulmonary- pneumonia (2) Renal failure (ARF), acute on chronic Problem: Acute Narrative: prerenal ( sepsis) r/o postrenal. will do indwelling sheehan catheter and get VIVIANA. continue with IVF. (3) Hypotension Problem: Resolved Narrative: improved. likely due due to sepsis. almost 8 L received. continue with IV antibiotics. will get Echo. (4) Dyspnea Problem: Acute Qualifiers: Dyspnea type: shortness of breath Qualified Code(s): R06.02 - Shortness of breath; R06.00 - Dyspnea, unspecified; R06.01 - Orthopnea (5) Elevated brain natriuretic peptide (BNP) level Problem: Acute (6) Morbid obesity Problem: Chronic (7) Hypertension Problem: Chronic Qualifiers: Hypertension type: essential hypertension Qualified Code(s): I10 - Essential (primary) hypertension (8) Diabetic neuropathy Problem: Chronic Qualifiers: Diabetes mellitus type: type 2 (9) CAD (coronary artery disease) Problem: Chronic (10) A-fib Problem: Chronic Qualifiers: Atrial fibrillation type: chronic Qualified Code(s): I48.2 - Chronic atrial fibrillation (11) Diabetes Problem: Chronic Qualifiers: Diabetes mellitus type: type 2 (12) HTN (hypertension) Problem: Chronic Qualifiers: Hypertension type: essential hypertension Qualified Code(s): I10 - Essential (primary) hypertension (13) HLD (hyperlipidemia) Problem: Chronic Qualifiers: Hyperlipidemia type: pure hypercholesterolemia Qualified Code(s): E78.00 - Pure hypercholesterolemia, unspecified; E78.0 - Pure hypercholesterolemia (14) Lactic acidosis Problem: Resolved (15) Lymphedema Problem: Chronic
[2018-03-01] MEDS: SACCHAROMYCES BOULARDII 250 MG CAPSULE PO SCH ×2 (09:18→20:07)
[2018-03-01] MEDS: APIXABAN 5 MG TABLET PO SCH ×2 (09:18→20:07)
[2018-03-01] MEDS: POTASSIUM CHLORIDE 10 MEQ TABLET.SA PO SCH (09:18)
[2018-03-01] MEDS: ESCITALOPRAM OXALATE 10 MG TAB PO SCH (09:19)
[2018-03-01] MEDS: METOPROLOL TARTRATE 25 MG TABLET PO SCH ×2 (09:19→20:07)
[2018-03-01] MEDS: GABAPENTIN 300 MG CAPSULE PO SCH (09:21)
[2018-03-01] MEDS: PANTOPRAZOLE SODIUM 20 MG TABLET.DR PO SCH ×2 (09:22→20:10)
[2018-03-01] MEDS: ALBUTEROL SULFATE/IPRATROPIUM 3 ML NEBU IH SCH ×2 (18:44→22:11)
[2018-03-01] MEDS: ROSUVASTATIN CALCIUM 10 MG TABLET PO SCH (20:06)
[2018-03-01] MEDS: rOPINIRole HCL 1 MG TABLET PO SCH (20:09)
[2018-03-01] MEDS: NORMAL SALINE 1,000 ML IV PRN (22:02)
[2018-03-02] MEDS: ALBUTEROL SULFATE/IPRATROPIUM 3 ML NEBU IH SCH ×6 (02:04→22:10)
[2018-03-02 05:34] LABS: Hematocrit 30.1 % (42.0-52.0); Mean Cell Volume 97.4 fl (78-100); Mean Corpuscular Hemoglobin 32.4 pg (27-31); Mean Corpuscular Hgb Conc 33.2 g/dl (32-36); Neutrophil # 7.5 K/mm3 (1.3-6.0); Neutrophil % 77.9 % (42-75.0); Platelet Count 132 K/mm3 (150-450); Red Blood Count 3.09 M/mm3 (4.7-6.0); Red Cell Distribution Width 14.3 % (11.5-14.0); White Blood Count 9.6 K/mm3 (4.0-10.5)
[2018-03-02 05:52] LABS: Anion Gap 11.4 mmol/L (6.8-13.8); BUN/Creatinine Ratio 19.3 (9.0-21.6); Calcium * 8.7 mg/dL (7.9-10.9); Carbon Dioxide 23.2 mmol/L (24-32.6); Estimated Creat Clear 31.5; Potassium 4.6 mmol/L (3.4-4.6)
[2018-03-02] MEDS: NORMAL SALINE 1,000 ML IV PRN ×3 (06:48→23:47)
--- NOTE | 2018-03-02 08:05 | PN ---
Subjective - Date and Time Seen Date: 03/02/18 Time: 07:59 Subjective Narrative: patient on chair eating breakfast with audible wheezing. He sasy he is much better. WBC is back to normal. Cr has improved. Objective - Review of Systems Generalized/Overall Review: Denies: Chills, Fever Respiratory: Reports: Shortness of Breath, Wheezing. Denies: Cough Cardiac: Reports: Edema. Denies: Chest Pain, Palpitations Abdominal: Denies: Nausea, Vomiting Genitourinary Symptoms: Denies: Urgency, Frequency Musculoskeletal Complaints: Reports: Joint Pain - Vitals Vitals: Last Vital Signs Temp 36.6 C 03/02/18 06:37 Pulse 91 03/02/18 06:37 Resp 14 03/02/18 06:37 BP 121/66 03/02/18 06:37 Pulse Ox 97 03/02/18 06:37 - Abnormal Lab Findings Abnormal Lab Findings: Abnormal Lab Results 03/02/18 03/02/18 Range/Units 05:25 05:25 RBC 3.09 L (4.7-6.0) M/mm3 Hgb 10.0 L (13.5-18.0) gm/dL Hct 30.1 L (42.0-52.0) % MCH 32.4 H (27-31) pg RDW 14.3 H (11.5-14.0) % Plt Count 132 L (150-450) K/mm3 Immature Gran # (Auto) 0.04 H (0.000-0.0310) K/mm3 Neutrophils % 77.9 H (42-75.0) % Lymphocytes % 9.5 L (20-51) % Eosinophils % 3.2 H (0.0-3.0) % Neutrophils # 7.5 H (1.3-6.0) K/mm3 Lymphocytes # 0.92 L (1.5-3.5) k/mm3 Carbon Dioxide 23.2 L (24-32.6) mmol/L BUN 39 H (6-23) mg/dL Creatinine 2.02 H D (0.4-1.4) mg/dL Est GFR (Non-Af Amer) 34 L D (60-130) mL/min Random Glucose 138 H (70-110) mg/dL B-Natriuretic Peptide 5218 H (5-650) pg/mL - Exam Constitutional: Present: Alert, Oriented x3, Cooperative, Morbidly obese ENT Exam: Present: hearing grossly normal Neck: Present: supple Respiratory: Present: decreased breath sounds, wheezing. Absent: rales Cardiovascular/Chest: Present: no JVD, no murmur, irregularly irregular Abdomen: Present: Normal bowel sounds, nontender, obese, firm Extremity: Present: no calf tenderness, lower extremity edema Cauti Physician Documentation - Urinary Catheter Management Urethral (Isbell) Date of Insertion: 03/01/18 Time of Insertion: 10:45 Assessment/Plan - Problems/Diagnosis (1) Bacteremia Problem: Acute Narrative: Streptococus bacteremia/septicemia. day of IV antibitoics. WBC is back to normal. awaiting final BC C & S results. will need total pf 10-14 days of antibiotics- likely 5-7 days of IV then oral dependng on culture. for Echo today to rule any vegetations. (2) Renal failure (ARF), acute on chronic Problem: Acute Narrative: Cr has improved. consider restarting him on his lasix. (3) Hypotension Problem: Resolved (4) Dyspnea Problem: Acute Qualifiers: Dyspnea type: shortness of breath Qualified Code(s): R06.02 - Shortness of breath; R06.00 - Dyspnea, unspecified; R06.01 - Orthopnea (5) Elevated brain natriuretic peptide (BNP) level Problem: Acute (6) Morbid obesity Problem: Chronic (7) Hypertension Problem: Chronic Qualifiers: Hypertension type: essential hypertension Qualified Code(s): I10 - Essential (primary) hypertension (8) Diabetic neuropathy Problem: Chronic Qualifiers: Diabetes mellitus type: type 2 (9) CAD (coronary artery disease) Problem: Chronic (10) A-fib Problem: Chronic Qualifiers: Atrial fibrillation type: chronic Qualified Code(s): I48.2 - Chronic atrial fibrillation (11) Diabetes Problem: Chronic Qualifiers: Diabetes mellitus type: type 2 (12) HTN (hypertension) Problem: Chronic Qualifiers: Hypertension type: essential hypertension Qualified Code(s): I10 - Essential (primary) hypertension (13) HLD (hyperlipidemia) Problem: Chronic Qualifiers: Hyperlipidemia type: pure hypercholesterolemia Qualified Code(s): E78.00 - Pure hypercholesterolemia, unspecified; E78.0 - Pure hypercholesterolemia (14) Lactic acidosis Problem: Resolved (15) Lymphedema Problem: Chronic (16) Obstructive sleep apnea Problem: Chronic Narrative: BiPap
[2018-03-02] MEDS: INSULIN LISPRO 100 UNITS/ML VIAL SC SCH ×4 (08:29→20:40)
[2018-03-02] MEDS: APIXABAN 5 MG TABLET PO SCH ×2 (09:00→20:37)
[2018-03-02] MEDS ORDERED: FUROSEMIDE 40 MG TABLET PO SCH (09:00)
[2018-03-02] MEDS ORDERED: AZITHROMYCIN 250 MG TABLET PO SCH (09:00)
[2018-03-02] MEDS: SACCHAROMYCES BOULARDII 250 MG CAPSULE PO SCH ×2 (09:00→20:37)
[2018-03-02] MEDS: POTASSIUM CHLORIDE 10 MEQ TABLET.SA PO SCH (09:00)
[2018-03-02] MEDS: ESCITALOPRAM OXALATE 10 MG TAB PO SCH (09:02)
[2018-03-02] MEDS: METOPROLOL TARTRATE 25 MG TABLET PO SCH ×2 (09:03→20:37)
[2018-03-02] MEDS: GABAPENTIN 300 MG CAPSULE PO SCH (09:04)
[2018-03-02] MEDS: PANTOPRAZOLE SODIUM 20 MG TABLET.DR PO SCH ×2 (09:05→20:38)
[2018-03-02] MEDS: ROSUVASTATIN CALCIUM 10 MG TABLET PO SCH (20:36)
[2018-03-02] MEDS: rOPINIRole HCL 1 MG TABLET PO SCH (20:38)
[2018-03-02] MEDS ORDERED: INSULIN GLARGINE,HUM.REC.ANLOG 100 UNITS/ML VIAL SC SCH (21:00)
[2018-03-03] MEDS: ALBUTEROL SULFATE/IPRATROPIUM 3 ML NEBU IH SCH ×7 (02:11→22:09)
[2018-03-03 05:35] LABS: Hematocrit 34.6 % (42.0-52.0); Hemoglobin 11.2 gm/dL (13.5-18.0); Mean Cell Volume 97.5 fl (78-100); Mean Corpuscular Hemoglobin 31.5 pg (27-31); Mean Corpuscular Hgb Conc 32.4 g/dl (32-36); Mean Platelet Volume 9.9 fl (8-11.3); Neutrophil # 8.2 K/mm3 (1.3-6.0); Neutrophil % 73.5 % (42-75.0); Platelet Count 189 K/mm3 (150-450); Red Blood Count 3.55 M/mm3 (4.7-6.0); Red Cell Distribution Width 13.8 % (11.5-14.0); White Blood Count 11.1 K/mm3 (4.0-10.5)
[2018-03-03 05:40] LABS: Anion Gap 16.7 mmol/L (6.8-13.8); BUN/Creatinine Ratio 16.8 (9.0-21.6); Calcium * 8.8 mg/dL (7.9-10.9); Carbon Dioxide 20.9 mmol/L (24-32.6); Estimated Creat Clear 35.6; Potassium 4.6 mmol/L (3.4-4.6)
[2018-03-03] MEDS ORDERED: LEVOFLOXACIN IN DEXTROSE 5 % 500 MG/100 ML BAG IV SCH (07:00)
[2018-03-03] MEDS: INSULIN LISPRO 100 UNITS/ML VIAL SC SCH ×4 (07:11→21:21)
[2018-03-03] MEDS: traMADol HCL 50 MG TABLET PO PRN ×2 (07:19→13:51)
--- NOTE | 2018-03-03 07:28 | PN ---
Subjective - Date and Time Seen Date: 03/03/18 Time: 07:20 Subjective Narrative: Feels better . WBC is up to 11.2. will d/c his sheehan cath Objective - Review of Systems Generalized/Overall Review: Reports: Weakness. Denies: Chills, Fever EENTM: Denies: Blurred Vision Respiratory: Reports: Cough, Wheezing Cardiac: Reports: Edema. Denies: Chest Pain, Palpitations Abdominal: Denies: Nausea, Vomiting Genitourinary Symptoms: Denies: Urgency, Frequency Musculoskeletal Complaints: Reports: Joint Pain, Back Pain - Vitals Vitals: Last Vital Signs Temp 36.2 C 03/03/18 06:45 Pulse 107 H 03/03/18 06:45 Resp 20 03/03/18 06:45 BP 119/66 03/03/18 06:45 Pulse Ox 94 03/03/18 06:45 - Abnormal Lab Findings Abnormal Lab Findings: Abnormal Lab Results 03/03/18 03/03/18 Range/Units 05:31 05:31 WBC 11.1 H (4.0-10.5) K/mm3 RBC 3.55 L (4.7-6.0) M/mm3 Hgb 11.2 L (13.5-18.0) gm/dL Hct 34.6 L (42.0-52.0) % MCH 31.5 H (27-31) pg Immature Gran # (Auto) 0.04 H (0.000-0.0310) K/mm3 Lymphocytes % 12.9 L (20-51) % Eosinophils % 3.9 H (0.0-3.0) % Neutrophils # 8.2 H (1.3-6.0) K/mm3 Lymphocytes # 1.43 L (1.5-3.5) k/mm3 Carbon Dioxide 20.9 L (24-32.6) mmol/L Anion Gap 16.7 H (6.8-13.8) mmol/L BUN 30 H (6-23) mg/dL Creatinine 1.79 H (0.4-1.4) mg/dL Est GFR (Non-Af Amer) 39 L (60-130) mL/min Random Glucose 139 H (70-110) mg/dL - Exam Constitutional: Present: Alert, Oriented x3, Cooperative, Morbidly obese ENT Exam: Present: hard of hearing Respiratory: Present: decreased breath sounds, wheezing - occasional, No rales Cardiovascular/Chest: Present: no JVD, no murmur, irregularly irregular Abdomen: Present: Normal bowel sounds, soft, nontender, obese Extremity: Present: no calf tenderness, lower extremity edema Cauti Physician Documentation - Urinary Catheter Management Urethral (Sheehan) Date of Insertion: 03/01/18 Time of Insertion: 10:45 Assessment/Plan - Problems/Diagnosis (1) Leukocytosis Problem: Acute Narrative: will indwelling sheehan cath and do UA and UCS if warranted. (2) Bacteremia Problem: Acute Narrative: with septicemia. Strep Agalactiae x 2 bottles. IV abx changed to IV Levaquin. Day # 4 of IV abx-will do 5-7 days if parenteral IV abx and change to oral. possible discharge on Tuesday. (3) Renal failure (ARF), acute on chronic Problem: Acute Narrative: Cr is improving (4) Hypotension Problem: Resolved (5) Dyspnea Problem: Acute Qualifiers: Dyspnea type: shortness of breath Qualified Code(s): R06.02 - Shortness of breath; R06.00 - Dyspnea, unspecified; R06.01 - Orthopnea Narrative: improved (6) Elevated brain natriuretic peptide (BNP) level Problem: Acute (7) Morbid obesity Problem: Chronic (8) Hypertension Problem: Chronic Qualifiers: Hypertension type: essential hypertension Qualified Code(s): I10 - Essential (primary) hypertension (9) Diabetic neuropathy Problem: Chronic Qualifiers: Diabetes mellitus type: type 2 (10) CAD (coronary artery disease) Problem: Chronic (11) A-fib Problem: Chronic Qualifiers: Atrial fibrillation type: chronic Qualified Code(s): I48.2 - Chronic atrial fibrillation (12) Diabetes Problem: Chronic Qualifiers: Diabetes mellitus type: type 2 (13) HTN (hypertension) Problem: Chronic Qualifiers: Hypertension type: essential hypertension Qualified Code(s): I10 - Essential (primary) hypertension (14) HLD (hyperlipidemia) Problem: Chronic Qualifiers: Hyperlipidemia type: pure hypercholesterolemia Qualified Code(s): E78.00 - Pure hypercholesterolemia, unspecified; E78.0 - Pure hypercholesterolemia (15) Lactic acidosis Problem: Resolved (16) Lymphedema Problem: Chronic (17) Obstructive sleep apnea Problem: Chronic
[2018-03-03] MEDS: ESCITALOPRAM OXALATE 10 MG TAB PO SCH (08:43)
[2018-03-03] MEDS: SACCHAROMYCES BOULARDII 250 MG CAPSULE PO SCH ×2 (08:44→21:21)
[2018-03-03] MEDS: FUROSEMIDE 80 MG TABLET PO SCH (08:44)
[2018-03-03] MEDS: APIXABAN 5 MG TABLET PO SCH ×2 (08:44→21:20)
[2018-03-03] MEDS: GABAPENTIN 300 MG CAPSULE PO SCH (08:44)
[2018-03-03] MEDS: METOPROLOL TARTRATE 25 MG TABLET PO SCH ×2 (08:45→21:22)
[2018-03-03] MEDS: POTASSIUM CHLORIDE 10 MEQ TABLET.SA PO SCH (08:45)
[2018-03-03] MEDS: PANTOPRAZOLE SODIUM 20 MG TABLET.DR PO SCH ×2 (08:46→21:23)
[2018-03-03] MEDS: NORMAL SALINE 1,000 ML IV PRN ×2 (09:07→18:24)
[2018-03-03 09:09] LABS: Urine Bilirubin Negative (NEGATIVE); Urine Blood 250 /ul (NEGATIVE); Urine Ketone Negative (NEGATIVE); Urine Nitrite Negative (NEGATIVE); Urine Protein 30 mg/dL (NEGATIVE); Urine Specific Gravity 1.015 SP.GR. (1.005-1.030); Urine Urobilinogen Normal (NORMAL)
[2018-03-03 09:18] LABS: Urine Appearance Cloudy (CLEAR); Urine Bacteria 1+; Urine Color Red; Urine RBC >50 /hpf (0-5)
[2018-03-03] MEDS: TAMSULOSIN HCL 0.4 MG CAP.SR.24H PO SCH (18:23)
[2018-03-03] MEDS: ROSUVASTATIN CALCIUM 10 MG TABLET PO SCH (21:19)
[2018-03-03] MEDS: rOPINIRole HCL 1 MG TABLET PO SCH (21:23)
[2018-03-03] MEDS: INSULIN GLARGINE,HUM.REC.ANLOG 100 UNITS/ML VIAL SC SCH (21:26)
[2018-03-04] MEDS: NORMAL SALINE 1,000 ML IV PRN ×3 (01:51→18:39)
[2018-03-04] MEDS: ALBUTEROL SULFATE/IPRATROPIUM 3 ML NEBU IH SCH ×6 (02:39→22:09)
[2018-03-04] MEDS: INSULIN LISPRO 100 UNITS/ML VIAL SC SCH ×4 (07:27→20:47)
[2018-03-04] MEDS: LEVOFLOXACIN IN DEXTROSE 5 % 250 MG/50 ML BAG IV SCH (07:28)
--- NOTE | 2018-03-04 09:51 | PN ---
Subjective - Date and Time Seen Date: 03/04/18 Time: 09:37 Subjective Narrative: Patient NAD . had UTI on UA. on Levaquin, preliminary no growth, will await culture. Objective - Review of Systems Generalized/Overall Review: Reports: Weakness. Denies: Chills, Fever EENTM: Denies: Blurred Vision Respiratory: Reports: Shortness of Breath. Denies: Cough Cardiac: Reports: Edema. Denies: Chest Pain, Palpitations Abdominal: Denies: Nausea, Vomiting Genitourinary Symptoms: Denies: Urgency, Frequency Musculoskeletal Complaints: Reports: Joint Pain - Vitals Vitals: Last Vital Signs Temp 36.4 C 03/04/18 06:35 Pulse 109 H 03/04/18 06:35 Resp 22 H 03/04/18 06:35 BP 112/24 03/04/18 06:35 Pulse Ox 96 03/04/18 06:35 - Exam Constitutional: Present: Alert, Oriented x3, Cooperative, Morbidly obese ENT Exam: Present: hearing grossly normal Neck: Present: supple Respiratory: Present: decreased breath sounds, rales, No wheezing Cardiovascular/Chest: Present: no JVD, no murmur, irregularly irregular Abdomen: Present: Normal bowel sounds, nontender, obese Extremity: Present: no calf tenderness, lower extremity edema Cauti Physician Documentation - Urinary Catheter Management Urethral (Isbell) Date of Insertion: 03/01/18 Time of Insertion: 10:45 Assessment/Plan - Problems/Diagnosis (1) Leukocytosis Problem: Acute Narrative: maia repeat CBC in am (2) Bacteremia Problem: Acute Narrative: with septcimia- Stre Agalactiae. Continue IV Levaquin . possible discharge on Tuesday. (3) Renal failure (ARF), acute on chronic Problem: Acute Narrative: Cr improved. will repeat BMP in am. (4) Hypotension Problem: Resolved (5) Dyspnea Problem: Acute Qualifiers: Dyspnea type: shortness of breath Qualified Code(s): R06.02 - Shortness of breath; R06.00 - Dyspnea, unspecified; R06.01 - Orthopnea (6) Elevated brain natriuretic peptide (BNP) level Problem: Acute (7) Morbid obesity Problem: Chronic (8) Hypertension Problem: Chronic Qualifiers: Hypertension type: essential hypertension Qualified Code(s): I10 - Essential (primary) hypertension (9) Diabetic neuropathy Problem: Chronic Qualifiers: Diabetes mellitus type: type 2 (10) CAD (coronary artery disease) Problem: Chronic (11) A-fib Problem: Chronic Qualifiers: Atrial fibrillation type: chronic Qualified Code(s): I48.2 - Chronic atrial fibrillation (12) Diabetes Problem: Chronic Qualifiers: Diabetes mellitus type: type 2 (13) HTN (hypertension) Problem: Chronic Qualifiers: Hypertension type: essential hypertension Qualified Code(s): I10 - Essential (primary) hypertension (14) HLD (hyperlipidemia) Problem: Chronic Qualifiers: Hyperlipidemia type: pure hypercholesterolemia Qualified Code(s): E78.00 - Pure hypercholesterolemia, unspecified; E78.0 - Pure hypercholesterolemia (15) Lactic acidosis Problem: Resolved (16) Lymphedema Problem: Chronic (17) Obstructive sleep apnea Problem: Chronic (18) UTI (urinary tract infection) Problem: Acute Narrative: will await final cuture. on IV levaquin. (19) Hematuria Problem: Acute Narrative: due to truam =/+ UTI and on eliquis. will monitor.
[2018-03-04] MEDS: SACCHAROMYCES BOULARDII 250 MG CAPSULE PO SCH ×2 (10:32→20:38)
[2018-03-04] MEDS: FUROSEMIDE 80 MG TABLET PO SCH (10:33)
[2018-03-04] MEDS: METOPROLOL TARTRATE 25 MG TABLET PO SCH ×2 (10:33→20:39)
[2018-03-04] MEDS: ESCITALOPRAM OXALATE 10 MG TAB PO SCH (10:33)
[2018-03-04] MEDS: APIXABAN 5 MG TABLET PO SCH ×2 (10:33→20:38)
[2018-03-04] MEDS: GABAPENTIN 300 MG CAPSULE PO SCH (10:34)
[2018-03-04] MEDS: POTASSIUM CHLORIDE 10 MEQ TABLET.SA PO SCH (10:34)
[2018-03-04] MEDS: PANTOPRAZOLE SODIUM 20 MG TABLET.DR PO SCH ×2 (10:34→20:40)
[2018-03-04] MEDS: TAMSULOSIN HCL 0.4 MG CAP.SR.24H PO SCH (18:40)
[2018-03-04] MEDS: ROSUVASTATIN CALCIUM 10 MG TABLET PO SCH (20:38)
[2018-03-04] MEDS: rOPINIRole HCL 1 MG TABLET PO SCH (20:40)
[2018-03-04] MEDS: INSULIN GLARGINE,HUM.REC.ANLOG 100 UNITS/ML VIAL SC SCH (20:50)
[2018-03-04] MEDS: traMADol HCL 50 MG TABLET PO PRN (22:39)
[2018-03-05] MEDS: ALBUTEROL SULFATE/IPRATROPIUM 3 ML NEBU IH SCH ×6 (02:17→23:25)
[2018-03-05] MEDS: NORMAL SALINE 1,000 ML IV PRN ×2 (02:40→11:29)
[2018-03-05 07:12] LABS: Hematocrit 31.6 % (42.0-52.0); Hemoglobin 10.6 gm/dL (13.5-18.0); Mean Cell Volume 95.2 fl (78-100); Mean Corpuscular Hemoglobin 31.9 pg (27-31); Mean Corpuscular Hgb Conc 33.5 g/dl (32-36); Neutrophil # 5.7 K/mm3 (1.3-6.0); Neutrophil % 70.6 % (42-75.0); Platelet Count 162 K/mm3 (150-450); Red Blood Count 3.32 M/mm3 (4.7-6.0); Red Cell Distribution Width 13.5 % (11.5-14.0); White Blood Count 8.1 K/mm3 (4.0-10.5)
[2018-03-05] MEDS: LEVOFLOXACIN IN DEXTROSE 5 % 250 MG/50 ML BAG IV SCH (07:22)
[2018-03-05 07:29] LABS: Anion Gap 9.8 mmol/L (6.8-13.8); BUN/Creatinine Ratio 13.5 (9.0-21.6); Calcium * 8.8 mg/dL (7.9-10.9); Estimated Creat Clear 47.9; Potassium 3.8 mmol/L (3.4-4.6)
[2018-03-05] MEDS: INSULIN LISPRO 100 UNITS/ML VIAL SC SCH ×4 (08:05→20:59)
[2018-03-05] MEDS: POTASSIUM CHLORIDE 10 MEQ TABLET.SA PO SCH (09:48)
[2018-03-05] MEDS: FUROSEMIDE 80 MG TABLET PO SCH (09:48)
[2018-03-05] MEDS: GABAPENTIN 300 MG CAPSULE PO SCH (09:48)
[2018-03-05] MEDS: ESCITALOPRAM OXALATE 10 MG TAB PO SCH (09:48)
[2018-03-05] MEDS: SACCHAROMYCES BOULARDII 250 MG CAPSULE PO SCH ×2 (09:48→20:58)
[2018-03-05] MEDS: APIXABAN 5 MG TABLET PO SCH ×2 (09:49→21:06)
[2018-03-05] MEDS: METOPROLOL TARTRATE 25 MG TABLET PO SCH ×2 (09:49→21:03)
[2018-03-05] MEDS: PANTOPRAZOLE SODIUM 20 MG TABLET.DR PO SCH ×2 (09:49→21:04)
--- NOTE | 2018-03-05 10:04 | PN ---
Subjective - Date and Time Seen Date: 03/05/18 Time: 09:56 Subjective Narrative: Patient NAD. Afebrile. possible discharge tomorrow. Objective - Review of Systems Generalized/Overall Review: Reports: Weakness. Denies: Chills, Fever EENTM: Denies: Blurred Vision Respiratory: Denies: Cough, Shortness of Breath, Wheezing Cardiac: Reports: Edema. Denies: Chest Pain, Palpitations Abdominal: Denies: Nausea, Vomiting Genitourinary Symptoms: Denies: Urgency, Frequency Musculoskeletal Complaints: Reports: Joint Pain - Vitals Vitals: Last Vital Signs Temp 36.1 C 03/05/18 06:35 Pulse 110 H 03/05/18 09:49 Resp 20 03/05/18 07:30 BP 122/65 03/05/18 09:49 Pulse Ox 96 03/05/18 07:30 - Abnormal Lab Findings Abnormal Lab Findings: Abnormal Lab Results 03/05/18 03/05/18 Range/Units 06:55 06:55 RBC 3.32 L (4.7-6.0) M/mm3 Hgb 10.6 L (13.5-18.0) gm/dL Hct 31.6 L (42.0-52.0) % MCH 31.9 H (27-31) pg Immature Gran % (Auto) 0.50 H (0.001-0.429) % Immature Gran # (Auto) 0.04 H (0.000-0.0310) K/mm3 Lymphocytes % 12.9 L (20-51) % Eosinophils % 6.8 H (0.0-3.0) % Lymphocytes # 1.04 L (1.5-3.5) k/mm3 Est GFR (Non-Af Amer) 55 L D (60-130) mL/min Random Glucose 152 H (70-110) mg/dL - Exam Constitutional: Present: Alert, Oriented x3, Cooperative ENT Exam: Present: hearing grossly normal Neck: Present: supple Respiratory: Present: decreased breath sounds, No rales, No wheezing Cardiovascular/Chest: Present: no JVD, no murmur, irregularly irregular Abdomen: Present: Normal bowel sounds, soft, nontender, obese Extremity: Present: no calf tenderness, lower extremity edema Cauti Physician Documentation - Urinary Catheter Management Urethral (Isbell) Date of Insertion: 03/01/18 Time of Insertion: 10:45 Assessment/Plan - Problems/Diagnosis (1) Leukocytosis Problem: Resolved Narrative: final UCS - NG (2) Bacteremia Problem: Acute Narrative: Strep Agalactiae. Day # 6 IV antibiotics (3) Renal failure (ARF), acute on chronic Problem: Acute Narrative: Cr back to normal (4) Hypotension Problem: Resolved (5) Dyspnea Problem: Acute Qualifiers: Dyspnea type: shortness of breath Qualified Code(s): R06.02 - Shortness of breath; R06.00 - Dyspnea, unspecified; R06.01 - Orthopnea (6) Elevated brain natriuretic peptide (BNP) level Problem: Acute (7) Morbid obesity Problem: Chronic (8) Hypertension Problem: Chronic Qualifiers: Hypertension type: essential hypertension Qualified Code(s): I10 - Essential (primary) hypertension (9) Diabetic neuropathy Problem: Chronic Qualifiers: Diabetes mellitus type: type 2 (10) CAD (coronary artery disease) Problem: Chronic (11) A-fib Problem: Chronic Qualifiers: Atrial fibrillation type: chronic Qualified Code(s): I48.2 - Chronic atrial fibrillation (12) Diabetes Problem: Chronic Qualifiers: Diabetes mellitus type: type 2 (13) HTN (hypertension) Problem: Chronic Qualifiers: Hypertension type: essential hypertension Qualified Code(s): I10 - Essential (primary) hypertension (14) HLD (hyperlipidemia) Problem: Chronic Qualifiers: Hyperlipidemia type: pure hypercholesterolemia Qualified Code(s): E78.00 - Pure hypercholesterolemia, unspecified; E78.0 - Pure hypercholesterolemia (15) Lactic acidosis Problem: Resolved (16) Lymphedema Problem: Chronic (17) Obstructive sleep apnea Problem: Chronic (18) UTI (urinary tract infection) Problem: Resolved Narrative: NG on final culture (19) Hematuria Problem: Acute Narrative: improved (20) Sepsis Problem: Acute (21) Sepsis Problem: Resolved
[2018-03-05] MEDS: traMADol HCL 50 MG TABLET PO PRN ×2 (11:23→18:52)
[2018-03-05] MEDS: TAMSULOSIN HCL 0.4 MG CAP.SR.24H PO SCH (18:48)
[2018-03-05] MEDS: ROSUVASTATIN CALCIUM 10 MG TABLET PO SCH (20:57)
[2018-03-05] MEDS: INSULIN GLARGINE,HUM.REC.ANLOG 100 UNITS/ML VIAL SC SCH (21:01)
[2018-03-05] MEDS: rOPINIRole HCL 1 MG TABLET PO SCH (21:05)
[2018-03-06] MEDS: traMADol HCL 50 MG TABLET PO PRN (01:55)
[2018-03-06] MEDS: ALBUTEROL SULFATE/IPRATROPIUM 3 ML NEBU IH SCH ×3 (03:23→10:28)
[2018-03-06] MEDS: INSULIN LISPRO 100 UNITS/ML VIAL SC SCH (07:36)
[2018-03-06] MEDS: LEVOFLOXACIN IN DEXTROSE 5 % 250 MG/50 ML BAG IV SCH (07:38)
--- NOTE | 2018-03-06 08:14 | DS ---
(1) Leukocytosis Problem: Resolved (2) Bacteremia Diagnosis(s): Strep Agalactiae Problem: Acute (3) Renal failure (ARF), acute on chronic Problem: Resolved Qualifiers: Chronic kidney disease stage: stage 3 (moderate) (4) Hypotension Problem: Resolved (5) Dyspnea Problem: Resolved Qualifiers: Dyspnea type: shortness of breath Qualified Code(s): R06.02 - Shortness of breath; R06.00 - Dyspnea, unspecified; R06.01 - Orthopnea (6) Elevated brain natriuretic peptide (BNP) level Problem: Acute (7) Morbid obesity Problem: Chronic (8) Hypertension Problem: Chronic Qualifiers: Hypertension type: essential hypertension Qualified Code(s): I10 - Essential (primary) hypertension (9) Diabetic neuropathy Problem: Chronic Qualifiers: Diabetes mellitus type: type 2 (10) CAD (coronary artery disease) Problem: Chronic (11) A-fib Problem: Chronic Qualifiers: Atrial fibrillation type: chronic Qualified Code(s): I48.2 - Chronic atrial fibrillation (12) Diabetes Problem: Chronic Qualifiers: Diabetes mellitus type: type 2 (13) HTN (hypertension) Problem: Chronic Qualifiers: Hypertension type: essential hypertension Qualified Code(s): I10 - Essential (primary) hypertension (14) HLD (hyperlipidemia) Problem: Chronic Qualifiers: Hyperlipidemia type: pure hypercholesterolemia Qualified Code(s): E78.00 - Pure hypercholesterolemia, unspecified; E78.0 - Pure hypercholesterolemia (15) Lactic acidosis Problem: Resolved (16) Lymphedema Problem: Chronic (17) Obstructive sleep apnea Problem: Chronic (18) UTI (urinary tract infection) Problem: Resolved (19) Hematuria Problem: Acute (20) Sepsis Problem: Resolved Description of Stay: Seamus, is an 83-year-old white male, with past medical history of atrial fibrillation on chronic coronary artery disease, diabetes mellitus type 2, diabetic to neuropathy, hypertension, hyperlipidemia, morbid obesity, obstructive sleep apnea, who was admitted on 02/28/2018 because of increasing shortness of breath. One day prior to admission patient started having shortness of breath associated with cough productive of whitish phlegm and wheezing. He did admit to having some fever and chills. On the morning of his admission, his shortness of breath got worse and he also said that he choked on an egg. He went to our emergency room were CXR showed central pulmonary congestion, mildly enlarged cardiac [place]uette. His WBC is elevated. His BNP was elevated at 3000. His lactic acid was elevated. He was treated for possible aspiration pneumonitis/beginnning pneumoonia with IV antibitoics and breathing treatments. He became hypotensive. His BP medications were put on hold and he was started on aggressive IVF for sepsis. His BC grew strep agalactiae x 2 bottles and he was changed to IV levaquin. His echo did not show vegetations. His WBC normalized and his Cr improved. He is stable now to be discharge on oral Levaquin. [address] is confined homebound to the home due to inability to ambulate due to severe knee pain and morbidly obese. He needs Home health for long-term for medications, VS monitoring and PT for strengthening for deconditioning. The need for home health is directly related to the time face to face with the person. Procedures Performed: none Results and Findings: Lab Pending Results 02/28/18 03:51: pCO2 31.9 L, pO2 78.3 L, HCO3 19.8 L, Total CO2 20.8, Base Excess -4.0 L, ABG pH 7.41, ABG O2 Sat (Measured) 94.5 02/28/18 04:00: Lactic Acid, Venous 2.3 H* 02/28/18 04:05: WBC 17.1 H, RBC 3.52 L, Hgb 11.2 L, Hct 33.7 L, MCV 95.7, MCH 31.8 H, MCHC 33.2, RDW 13.8, Plt Count 165, MPV 9.6, Immature Gran % (Auto) 0.60 H, Immature Gran # (Auto) 0.10 H, Neutrophils % 91.2 H, Lymphocytes % 2.9 L, Monocytes % 4.5, Eosinophils % 0.5, Basophils % 0.3, Nucleated RBC % 0.0, Neutrophils # 15.6 H, Lymphocytes # 0.50 L, Monocytes # 0.8, Eosinophils # 0.1, Absolute Basophils 0.1 02/28/18 04:05: Sodium 133, Plasma Sodium 133, Potassium 4.8 H, Chloride 102, Carbon Dioxide 26.1, Anion Gap 9.7, BUN 24 H, Creatinine 1.42 H, Est GFR (Non-Af Amer) 51 L, BUN/Creatinine Ratio 16.9, Random Glucose 131 H, Calcium 8.3, Calcium Adj for Albumin 8.8, Total Bilirubin 1.0, AST 34, ALT 29, Alkaline Phosphatase 130, Troponin I 0.036, B-Natriuretic Peptide 3113 H, Total Protein 6.8, Albumin 3.0 L 02/28/18 05:16: Urine Color Yellow, Urine Appearance Clear, Urine pH 5.5, Ur Specific [place] 1.025, Urine Protein 15 H, Urine Glucose (UA) Negative, Urine Ketones Negative, Urine Blood Negative, Urine Nitrate Negative, Urine Bilirubin Negative, Prot Sulfosalicylic Acd Negative, Urine Urobilinogen Normal, Ur Leukocyte Esterase Negative, Urine RBC None seen, Urine WBC None seen, Ur Epithelial Cells None seen, Urine Bacteria 1+ H, Urine Culture Comments No culture indicated 02/28/18 08:00: Lactic Acid, Venous 2.8 H* 02/28/18 09:39: pCO2 29.7 L, pO2 82.2 L, HCO3 19.6 L, Total CO2 20.5, Base Excess -3.6 L, ABG pH 7.44, ABG O2 Sat (Measured) 96.6 03/01/18 07:13: WBC 11.4 H D, RBC 3.12 L, Hgb 10.0 L, Hct 30.7 L, MCV 98.4, MCH 32.1 H, MCHC 32.6, RDW 14.5 H, Plt Count 124 L, MPV 9.9, Immature Gran % (Auto) 0.40, Immature Gran # (Auto) 0.05 H, Neutrophils % 85.0 H, Lymphocytes % 6.0 L, Monocytes % 7.3, Eosinophils % 1.0, Basophils % 0.3, Nucleated RBC % 0.0, Neutrophils # 9.7 H, Lymphocytes # 0.68 L, Monocytes # 0.8, Eosinophils # 0.1, Absolute Basophils 0.0 03/01/18 07:13: Sodium 133, Plasma Sodium 133, Potassium 4.5, Chloride 103, Carbon Dioxide 24.5, Anion Gap 10.0, BUN 38 H D, Creatinine 2.55 H D, Est GFR (Non-Af Amer) 26 L D, BUN/Creatinine Ratio 14.9, Random Glucose 113 H, Calcium 8.0 03/01/18 07:13: Lactic Acid, Venous 1.0 03/02/18 05:25: WBC 9.6, RBC 3.09 L, Hgb 10.0 L, Hct 30.1 L, MCV 97.4, MCH 32.4 H, MCHC 33.2, RDW 14.3 H, Plt Count 132 L, MPV 10.0, Immature Gran % (Auto) 0.40, Immature Gran # (Auto) 0.04 H, Neutrophils % 77.9 H, Lymphocytes % 9.5 L, Monocytes % 8.6, Eosinophils % 3.2 H, Basophils % 0.4, Nucleated RBC % 0.0, Neutrophils # 7.5 H, Lymphocytes # 0.92 L, Monocytes # 0.8, Eosinophils # 0.3, Absolute Basophils 0.0 03/02/18 05:25: Sodium 134, Plasma Sodium 135, Potassium 4.6, Chloride 104, Carbon Dioxide 23.2 L, Anion Gap 11.4, BUN 39 H, Creatinine 2.02 H D, Est GFR (Non-Af Amer) 34 L D, BUN/Creatinine Ratio 19.3, Random Glucose 138 H, Calcium 8.7, B-Natriuretic Peptide 5218 H 03/03/18 05:31: WBC 11.1 H, RBC 3.55 L, Hgb 11.2 L, Hct 34.6 L, MCV 97.5, MCH 31.5 H, MCHC 32.4, RDW 13.8, Plt Count 189, MPV 9.9, Immature Gran % (Auto) 0.40, Immature Gran # (Auto) 0.04 H, Neutrophils % 73.5, Lymphocytes % 12.9 L, Monocytes % 8.8, Eosinophils % 3.9 H, Basophils % 0.5, Nucleated RBC % 0.0, Neutrophils # 8.2 H, Lymphocytes # 1.43 L, Monocytes # 1.0, Eosinophils # 0.4, Absolute Basophils 0.1 03/03/18 05:31: Sodium 138, Plasma Sodium 139, Potassium 4.6, Chloride 105, Carbon Dioxide 20.9 L, Anion Gap 16.7 H, BUN 30 H, Creatinine 1.79 H, Est GFR (Non-Af Amer) 39 L, BUN/Creatinine Ratio 16.8, Random Glucose 139 H, Calcium 8.8 03/03/18 08:50: Urine Color Red, Urine Appearance Cloudy, Urine pH 6.0, Ur Specific [place] 1.015, Urine Protein 30 H, Urine Glucose (UA) Negative, Urine Ketones Negative, Urine Blood 250 H, Urine Nitrate Negative, Urine Bilirubin Negative, Prot Sulfosalicylic Acd 4+ H, Urine Urobilinogen Normal, Ur Leukocyte Esterase 100 H, Urine RBC >50 H, Urine WBC 5-10 H, Ur Epithelial Cells 5-10 H, Urine Bacteria 1+ H, Urine Culture Comments Culture to follow 03/05/18 06:55: WBC 8.1 D, RBC 3.32 L, Hgb 10.6 L, Hct 31.6 L, MCV 95.2, MCH 31.9 H, MCHC 33.5, RDW 13.5, Plt Count 162, MPV 10.0, Immature Gran % (Auto) 0.50 H, Immature Gran # (Auto) 0.04 H, Neutrophils % 70.6, Lymphocytes % 12.9 L, Monocytes % 8.2, Eosinophils % 6.8 H, Basophils % 1.0, Nucleated RBC % 0.0, Neutrophils # 5.7, Lymphocytes # 1.04 L, Monocytes # 0.7, Eosinophils # 0.6, Absolute Basophils 0.1 03/05/18 06:55: Sodium 136, Plasma Sodium 137, Potassium 3.8, Chloride 105, Carbon Dioxide 25.0, Anion Gap 9.8, BUN 18, Creatinine 1.33 D, Est GFR (Non-Af Amer) 55 L D, BUN/Creatinine Ratio 13.5, Random Glucose 152 H, Calcium 8.8 Discharge Location: Home Disposition: [facility] Health Agency: [facility] Home Health Condition: Fair Face to Face Encounter completed per CMS Guidelines: Yes Discharge Activity: Activity as tolerated Discharge Diet: Consistent carbs, Low salt Referrals: Caryn Maza MD [Primary Care Provider] - Additional Patient Instructions (free text): -Please make TCM appointment unless halfway discharge. Thank you! Natalie @ [phone]. follow up with PCP in 2 weeks. Prescriptions (Any new or edited meds): Albuterol Sulfate/Ipratropium [Duoneb 2.5-0.5MG/3ML Soln] 3 ml IH BID #1 nebu Levofloxacin [Levaquin] 750 mg PO DAILY 7 Days #5 tablet Saccharomyces Boulardii [Florastor] 250 mg PO BID #14 capsule Tamsulosin HCl [Flomax] 0.4 mg PO DAILY@1800 #30 cap.sr.24h traMADol HCL [Ultram] 50 mg PO Q6H PRN #20 tablet PRN Reason: Moderate Pain (Pain Scale 4-6) Complete Home Medications List: Complete Home Medication List: Escitalopram Oxalate [Lexapro] 10 mg PO DAILY 05/17/12 Omeprazole [Prilosec] 20 mg PO BID 05/17/12 Gabapentin 900 mg PO DAILY 04/23/13 Acetaminophen [Arthritis Pain Relief] 1,300 mg PO Q8H PRN 08/24/13 Multivitamins [Multivitamin Keith] 1 cap PO DAILY 08/24/13 Apixaban [Eliquis] 5 mg PO BID 02/28/18 Atorvastatin Calcium 60 mg PO DAILY 02/28/18 Benazepril HCl 20 mg PO BID 02/28/18 Furosemide [Lasix] 120 mg PO DAILY 02/28/18 Insulin Glargine,Hum.rec.anlog [Lantus Solostar] 85 unit SQ DAILY 02/28/18 Metoprolol Tartrate [Lopressor] 75 mg PO BID 02/28/18 Pioglitazone HCl [Actos] 30 mg PO DAILY 02/28/18 Potassium Chloride [Klor-Con 10] 10 meq PO DAILY 02/28/18 glipiZIDE [Glipizide] 5 mg PO BID 02/28/18 rOPINIRole HCL [Ropinirole HCl] 3 mg PO HS 02/28/18 Albuterol Sulfate/Ipratropium [Duoneb 2.5-0.5MG/3ML Soln] 3 ml IH BID #1 nebu 03/06/18 Levofloxacin [Levaquin] 750 mg PO DAILY 7 Days #5 tablet 03/06/18 Saccharomyces Boulardii [Florastor] 250 mg PO BID #14 capsule 03/06/18 Tamsulosin HCl [Flomax] 0.4 mg PO DAILY@1800 #30 cap.sr.24h 03/06/18 traMADol HCL [Ultram] 50 mg PO Q6H PRN #20 tablet 03/06/18
[2018-03-06] MEDS: GABAPENTIN 300 MG CAPSULE PO SCH (08:50)
[2018-03-06] MEDS: ESCITALOPRAM OXALATE 10 MG TAB PO SCH (08:50)
[2018-03-06] MEDS: METOPROLOL TARTRATE 25 MG TABLET PO SCH (08:51)
[2018-03-06] MEDS: SACCHAROMYCES BOULARDII 250 MG CAPSULE PO SCH (08:51)
[2018-03-06] MEDS: FUROSEMIDE 80 MG TABLET PO SCH (08:51)
[2018-03-06] MEDS: APIXABAN 5 MG TABLET PO SCH (08:51)
[2018-03-06] MEDS: POTASSIUM CHLORIDE 10 MEQ TABLET.SA PO SCH (08:51)
[2018-03-06] MEDS: PANTOPRAZOLE SODIUM 20 MG TABLET.DR PO SCH (08:51)
--- NOTE | 2018-03-06 09:33 | ECHO ---
This report is available in the EMR
[2018-03-06 10:51] VITALS: BP 117/57
== END 2018-03-06 11:20 | disposition home health service (06) | DRG 872 ==
LOC: ER 03:09 → MS 06:28
PROVIDERS: ADMIT Internal Medicine; ATTEND Internal Medicine
DX: R60.9 Edema, unspecified; R78.89 Finding of other specified substances, not normally found in blood; I95.9 Hypotension, unspecified; K21.9 Gastro-esophageal reflux disease without esophagitis; Z79.01 Long term (current) use of anticoagulants; R31.9 Hematuria, unspecified; Z68.44 Body mass index [BMI] 60.0-69.9, adult; G25.81 Restless legs syndrome; I25.10 Atherosclerotic heart disease of native coronary artery without angina pectoris; F41.9 Anxiety disorder, unspecified; Z80.42 Family history of malignant neoplasm of prostate; M71.9 Bursopathy, unspecified; A40.1 Sepsis due to streptococcus, group B; E11.22 Type 2 diabetes mellitus with diabetic chronic kidney disease; E78.00 Pure hypercholesterolemia, unspecified; F32.9 Major depressive disorder, single episode, unspecified; G47.33 Obstructive sleep apnea (adult) (pediatric); T83.098A Other mechanical complication of other urinary catheter, initial encounter; N39.0 Urinary tract infection, site not specified; R97.20 Elevated prostate specific antigen [PSA]; N17.9 Acute kidney failure, unspecified; Z95.5 Presence of coronary angioplasty implant and graft; Z85.46 Personal history of malignant neoplasm of prostate; I89.0 Lymphedema, not elsewhere classified; Z79.4 Long term (current) use of insulin; E11.40 Type 2 diabetes mellitus with diabetic neuropathy, unspecified; R06.00 Dyspnea, unspecified; N18.3 Chronic kidney disease, stage 3 (moderate); E66.01 Morbid (severe) obesity due to excess calories; M17.10 Unilateral primary osteoarthritis, unspecified knee; M19.90 Unspecified osteoarthritis, unspecified site; I48.2 Chronic atrial fibrillation; F98.8 Other specified behavioral and emotional disorders with onset usually occurring in childhood and adolescence; E87.2 Acidosis; I12.9 Hypertensive chronic kidney disease with stage 1 through stage 4 chronic kidney disease, or unspecified chronic kidney disease; I25.2 Old myocardial infarction
CPT/HCPCS: 36415; 36600; 71010; 71045; 76770; 80048; 80053; 81001; 82803; 83519; 83605; 83880; 84484; 85025; 87040; 87077; 87086; 87186; 93005; 93306; 94640; 94660; 94664; 94760; 96361; 96374; 97110; 97161; 99284